=== PATIENT | female | born 1945 | race Caucasian/White ===

== ENCOUNTER → 2016-06-01 | Outpatient (REF) | payer MEDICARE, BC | LOC: M SFHCLACO 08:27 | PROVIDERS: ATTEND Physician Assistant | DX: J44.9 Chronic obstructive pulmonary disease, unspecified (principal); I10 Essential (primary) hypertension; E78.2 Mixed hyperlipidemia; E11.9 Type 2 diabetes mellitus without complications; E61.2 Magnesium deficiency; Z53.9 Procedure and treatment not carried out, unspecified reason ==

== ENCOUNTER → 2016-12-30 | Outpatient (REF) | payer MEDICARE, BC | LOC: M SFHCLACO 08:24 | PROVIDERS: ATTEND Physician Assistant | DX: J44.9 Chronic obstructive pulmonary disease, unspecified (principal); I10 Essential (primary) hypertension; E78.2 Mixed hyperlipidemia; E11.9 Type 2 diabetes mellitus without complications; Z53.9 Procedure and treatment not carried out, unspecified reason ==

== ENCOUNTER 2019-07-06 14:07 | Inpatient (IN) | payer MEDICARE, BC ==
[~2019-07-06] VITALS: Ht 157.5 cm; Wt 100.1 kg
[2019-07-06 15:30] LABS: BASO % 0.4 % (0.0-1.0); EOS % 0.7 % (0.0-3.0); HEMATOCRIT 29.3 % (36.0-47.0); HEMOGLOBIN 8.4 g/dl (12.0-15.5); LYMPH # 0.6 10^3/uL (1.5-5.0); LYMPH % 9.8 % (24.0-44.0); MEAN CORPUSCULAR HEMOGLOBIN 26.1 pg (27.0-33.0); MEAN CORPUSCULAR HGB CONC 28.7 g/dl (32.0-36.5); MONO # 0.6 10^3/uL (0.0-0.8); MONO % 10.5 % (0.0-5.0); NEUTROPHILS # 4.5 10^3/uL (1.5-8.5); NEUTROPHILS % 78.2 % (36.0-66.0); PLATELET COUNT, AUTOMATED 192 10^3/uL (150-450); RED BLOOD COUNT 3.22 10^6/uL (4.00-5.40); WHITE BLOOD COUNT 5.7 10^3/uL (4.0-10.0)
--- NOTE | 2019-07-06 15:53 | REP ---
CHEST, PORTABLE: AP portable view of the chest is performed. There are no prior studies for comparison. There is cardiomegaly. Vasculature appears somewhat engorged. There are accentuated interstitial markings which may represent mild interstitial edema versus fibrosis. There is calcification and tortuosity of the thoracic aorta. Mildly prominent right hilar shadow is likely due to vascular structures. There is an old healed fracture of the left clavicle. Electronically Signed by Sly Valdes MD 07/06/2019 04:32 P
[2019-07-06 16:12] LABS: ALBUMIN 3.1 GM/DL (3.2-5.2); ALT/SGPT 19 U/L (12-78); BILIRUBIN,DIRECT 0.2 MG/DL (0.0-0.2); BILIRUBIN,TOTAL 0.6 MG/DL (0.2-1.0); BLOOD UREA NITROGEN 13 MG/DL (7-18); CALCIUM LEVEL 8.8 MG/DL (8.8-10.2); CARBON DIOXIDE LEVEL 32 MEQ/L (21-32); CHLORIDE LEVEL 106 MEQ/L (98-107); CREATININE FOR GFR 0.74 MG/DL (0.55-1.30); GLOMERULAR FILTRATION RATE > 60.0 (>39); GLUCOSE, FASTING 126 MG/DL (70-100); NT-PRO BNP 852 PG/ML (<450); SODIUM LEVEL 141 MEQ/L (136-145); TOTAL PROTEIN 7.6 GM/DL (6.4-8.2)
--- NOTE | 2019-07-06 16:37 | REP ---
Bilateral lower extremity Duplex Doppler venous ultrasound: Real time compression and duplex Doppler interrogation of the bilateral lower extremity deep venous system is performed. Bilaterally, the common femoral, superficial femoral and popliteal veins are fully compressible with transducer pressure and demonstrate normal spontaneous and phasic flow, without evidence of deep venous thrombosis. Impression: No evidence of deep venous thrombosis of the bilateral lower extremity femoral popliteal venous system. Electronically Signed by Sly Valdes MD 07/06/2019 04:29 P
[2019-07-06] MEDS ORDERED: FUROSEMIDE 100 MG/10 ML VIAL (J1940) IV ONE (17:00)
[2019-07-06] MEDS ORDERED: FURO40TA2 PO (17:11)
[2019-07-06] MEDS ORDERED: VENTAER INH (17:11)
[2019-07-06] MEDS ORDERED: IPRA0.00 NEB (17:11)
[2019-07-06] MEDS ORDERED: METO100T5 PO (17:11)
[2019-07-06] MEDS ORDERED: QUIN1TAB3 PO (17:11)
[2019-07-06] MEDS ORDERED: COMBAER6 INH (17:18)
[2019-07-06] MEDS ORDERED: ATOR1TAB19 PO (17:18)
[2019-07-06] MEDS ORDERED: MAGN500T12 PO (17:18)
[2019-07-06] MEDS ORDERED: ASPI81TA85 PO (17:18)
[2019-07-06] MEDS ORDERED: OMEP-221 PO (17:18)
[2019-07-06] MEDS ORDERED: METF500T13 PO (17:18)
[2019-07-06] MEDS ORDERED: FUROSEMIDE 40 MG/4 ML VIAL (J1940) IV SCH (18:00)
[2019-07-06] MEDS ORDERED: GLUCOSE 4 GM CHEW TABLET PO PRN (18:00)
[2019-07-06] MEDS ORDERED: GLUCAGON FOR INJ 1 MG VIAL (J1610) SC PRN (18:00)
[2019-07-06] MEDS ORDERED: DEXTROSE 50% 50 ML SYRINGE IV PRN (18:00)
[2019-07-06 19:15] LABS: TROPONIN I < 0.02 NG/ML (< 0.10)
[2019-07-06] MEDS: METOPROLOL TARTRATE 100 MG TAB PO SCH (19:55)
[2019-07-06 20:30] VITALS: BP 153/57
[2019-07-06] MEDS: HumaLOG INSULIN (NovoLOG) PER UNIT SC SCH (21:00)
[2019-07-06] MEDS: FUROSEMIDE 40 MG/4 ML VIAL (J1940) IV SCH (21:29)
[2019-07-06] MEDS: QUINAPRIL 20 MG TAB PO SCH (21:30)
--- NOTE | 2019-07-06 22:37 | HPE ---
DATE OF ADMISSION: 07/06/2019 TIME: 6:08 p.m. PRIMARY CARE PROVIDER: ELENA Castle CHIEF COMPLAINT: The patient was brought in a 9.41 by police. HISTORY OF PRESENT ILLNESS: Mrs. Franklin is a 74-year-old woman who was never and has no children. She resides at the [address] [place] [address] and recently she had learned that the place where she was living in is shutting down for repairs and that she would have to find another place to live. She became concerned about this and had started contacting nursing homes in the area and had been turned down and so she became upset while talking to the assisted staff and said, "If I cannot get into a assisted, I might as well just ." Because of this, the police were called to her residence and she was brought in a 9.41; however, she is not suicidal whatsoever. In the emergency department, she was found to be hypertensive with a blood pressure of 211/99. Chest x-ray indicated that she had some mild pulmonary edema with cephalization consistent with congestive heart failure (CHF). It is unclear whether the patient is compliant with her medications. She was treated with intravenous Lasix and admitted to the hospitalist service. She did report that she has had increasing lower extremity swelling. ALLERGIES: No known drug allergies. HOME MEDICATIONS: - albuterol - aspirin - atorvastatin - furosemide 40 mg three times a day - DuoNeb - magnesium oxide - metformin - metoprolol 100 mg twice a day - omeprazole 40 mg daily - quinapril 20 mg twice a day PAST MEDICAL HISTORY: Notable for: 1. Dwn-vqvhxxr-edgoxrzrm diabetes mellitus type 2. 2. Chronic respiratory failure secondary to chronic obstructive pulmonary disease (COPD). She has no extensive tobacco use, but suspects that her COPD developed due to occupational exposure to fiberglass. 3. She has a history of hypertension. 4. Chronic atrial fibrillation. She is no longer on anticoagulation due to a history of gastrointestinal bleed. 5. Chronic respiratory failure and is on 2 to 3 liters of oxygen continuously. 6. History of recently diagnosed colon cancer, status post colectomy. 7. History of chronic diastolic congestive heart failure (CHF). 8. History of blood transfusion during her colectomy. 9. History of gastrointestinal bleed in the past. SURGICAL HISTORY: 1. Colectomy. 2. Exploratory laparotomy, which found that she had a ruptured appendix as a teenager. SOCIAL HISTORY: The patient lives at [address] [place] [address]. She was never . No children. Her surrogate decision maker would be her nephew, Lisandro Franklin. She lists herself as a DO NOT RESUSCITATE. She smoked for a few years but does not do so any longer. FAMILY HISTORY: Notable for dementia and alcoholism. REVIEW OF SYSTEMS: Positive for increasing shortness of breath, decreased functional ability, increased lower extremity swelling. She denies having any chest discomfort. No orthopnea. She denies having any fevers, chills. She reports being compliant with her medications. Remainder of 12-system review is otherwise negative. PHYSICAL EXAMINATION: The patient's pulse is 118 and irregularly irregular with atrial fibrillation seen on telemetry. Respiratory rate 20. Blood pressure 211/99. Oxygen saturation is 95% on 2 liters of nasal cannula. GENERAL: The patient is alert, oriented times three. She has some mild tachypnea during our conversation. She is an elderly female who is very pleasant and appears to be in no significant respiratory distress. HEENT: Head is atraumatic. Pupils are equal, round and reactive to light and accommodation. Extraocular muscles are full. She has her eyeglasses in place. Oropharynx is clear without exudate, erythema or thrush. Neck is supple with no visible jugular venous distention (JVD). LUNGS: Lung sounds are heard bilaterally with bilateral rales. HEART: S1, S2. Irregularly irregular with a grade 2/6 systolic murmur. ABDOMEN: Soft, nontender, nondistended. No visible ascites. No palpable masses. No midline pulsatile mass suggestive of aneurysm. EXTREMITIES: She has 4+ chronic bilateral lower extremity lymphedema. NEUROLOGIC: Cranial nerves II through XII are grossly intact. No focal neurological deficits. RELEVANT LABORATORIES: White count 7.7, hemoglobin 8.4, hematocrit 29.3, platelet count 192. Sodium 141, potassium 4.1, chloride 106, bicarbonate 32, BUN 13, creatinine 0.74, glucose 126, pro BNP 852, TSH was 4.23, albumin 3.1. Chest x-ray showed cephalization with mild interstitial edema consistent with congestive heart failure (CHF). Bilateral lower extremity venous duplex ultrasound did not show any evidence of deep vein thrombosis (DVT). IMPRESSION: 1. Acute on chronic diastolic congestive heart failure (CHF). THe patient will be admitted to the hospitalist service for a minimum of two midnight hospital stay . She will be placed on Lasix 40 mg intravenous every [address] a female catheter. We will diurese her and keep a close eye on her input and output, as well as daily weight and monitor the trend in her electrolytes daily. An echocardiogram will be requested. 2. Accelerated hypertension. The patient will be resumed on her quinapril and metoprolol and see if we need to make any adjustment to the dosages to control her blood pressure. 3. Hyperlipidemia. She will be maintained on atorvastatin. 4. Diabetes mellitus type 2, noninsulin dependent. We will hold her metformin with her acute congestive heart failure (CHF) exacerbation for now while we diurese her. We will continue her on a carbohydrate diet and place her on sliding scale. 5. Chronic obstructive pulmonary disease (COPD). She will be maintained on oxygen, as well as her nebulizers. Her COPD is stable at this time. 6. History of colon cancer. The patient is status post colectomy. She is due to followup as an outpatient with her oncologist for further workup. The patient will be a DO NOT RESUSCITATE per her wishes. She will be placed on Lovenox and thromboembolic compression stockings (TEDS) for deep vein thrombosis (DVT) prophylaxis given her history of colon cancer, which puts her at a higher risk.
[2019-07-06] MEDS: NYSTATIN 100,000 UNITS/GM TOPICAL PWD 15 GM TOP SCH (23:41)
[2019-07-07 06:00] VITALS: BP 164/71
[2019-07-07 06:13] LABS: HEMATOCRIT 29.1 % (36.0-47.0); HEMOGLOBIN 8.5 g/dl (12.0-15.5); MEAN CORPUSCULAR HEMOGLOBIN 26.5 pg (27.0-33.0); MEAN CORPUSCULAR HGB CONC 29.2 g/dl (32.0-36.5); MEAN CORPUSCULAR VOLUME 90.7 fl (80.0-96.0); PLATELET COUNT, AUTOMATED 170 10^3/uL (150-450); RED BLOOD COUNT 3.21 10^6/uL (4.00-5.40); WHITE BLOOD COUNT 5.2 10^3/uL (4.0-10.0)
[2019-07-07 06:34] LABS: BLOOD UREA NITROGEN 12 MG/DL (7-18); CALCIUM LEVEL 9.2 MG/DL (8.8-10.2); CARBON DIOXIDE LEVEL 35 MEQ/L (21-32); CHLORIDE LEVEL 103 MEQ/L (98-107); GLOMERULAR FILTRATION RATE > 60.0 (>39); GLUCOSE, FASTING 97 MG/DL (70-100); MAGNESIUM LEVEL 1.7 MG/DL (1.8-2.4); POTASSIUM SERUM 3.7 MEQ/L (3.5-5.1); SODIUM LEVEL 141 MEQ/L (136-145)
--- NOTE | 2019-07-07 07:20 | ECGEPIP ---
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
[2019-07-07] MEDS: HumaLOG INSULIN (NovoLOG) PER UNIT SC SCH ×4 (07:30→20:18)
[2019-07-07] MEDS: IPRATROPIUM 0.5MG/ALBUTEROL 2.5MG INH SOL UD 3ML (DUONEB)(J7620) NEB PRN (08:41)
[2019-07-07] MEDS: QUINAPRIL 20 MG TAB PO SCH ×2 (09:38→21:02)
[2019-07-07] MEDS: MAGNESIUM OXIDE 400 MG TAB (MAG-OX) PO SCH ×2 (09:46→21:02)
[2019-07-07] MEDS: ATORVASTATIN 10 MG TAB PO SCH (09:46)
[2019-07-07] MEDS: ASPIRIN 81 MG ENTERIC TAB PO SCH (09:46)
[2019-07-07] MEDS: METOPROLOL TARTRATE 100 MG TAB PO SCH ×2 (09:47→21:02)
[2019-07-07] MEDS: ENOXAPARIN 40 MG/0.4 ML SYRINGE (J1650) SC SCH (09:48)
[2019-07-07] MEDS: FUROSEMIDE 40 MG/4 ML VIAL (J1940) IV SCH ×2 (09:49→21:03)
[2019-07-07] MEDS: NYSTATIN 100,000 UNITS/GM TOPICAL PWD 15 GM TOP SCH ×2 (09:50→21:03)
[2019-07-07 10:00] VITALS: BP 138/68
[2019-07-07 14:00] VITALS: BP 145/70
--- NOTE | 2019-07-07 14:01 | ECHO ---
DATE OF PROCEDURE: 07/07/2019 REFERRING PHYSICIAN: Dr. Rice INDICATION: Dyspnea. Height 157 cm, weight 104 kg. DIMENSIONS: IVS: 1.2 LV: 4.3 LVPW: 1.2 LA: 4.6 Aorta: 2.6 RV: 3.0 IVC: 2.5 FINDINGS: The study is of fair technical quality. The patient is in atrial fibrillation with controlled rate. Left ventricle is normal size and has normal systolic function. Estimated left ventricular ejection fraction is approximately 65%. Mild left ventricular hypertrophy (LVH) is noted. Right ventricle does not appear grossly dilated and is normally contractile. There is severe biatrial enlargement, atrial septum is deviated to the right. Aortic valve is heavily sclerotic, but mobility of cusps is preserved and the valve is tricuspid. There are also mild degenerative abnormalities of mitral valve with mitral annular calcifications. Tricuspid and pulmonic valves appear normal. No pericardial effusion is present. Inferior vena cava is dilated, and there is no appreciable collapse with inspiration indicative of very high central venous pressure. Aortic root is normal. Aortic arch was not well seen. Abdominal aorta appears normal. Doppler interrogation reveals no significant aortic stenosis or insufficiency. There is approximately mild to moderate or moderate mitral insufficiency and mild tricuspid insufficiency. Calculated pulmonary artery pressure is in minimum in high 40s corresponding to moderate pulmonary hypertension. Evaluation of diastolic function is inconclusive due to presence of atrial fibrillation. CONCLUSIONS: 1. Study is of fair technical quality, the patient is in atrial fibrillation with controlled rate. 2. Mild LVH with preserved LV systolic function. 3. Moderate mitral insufficiency. 4. Very high central venous pressure and at least moderate pulmonary hypertension. 5. Biatrial enlargement. COMMENT: Subacute bacterial endocarditis (SBE) prophylaxis is not recommended. [facility]
--- NOTE | 2019-07-07 16:33 | IPNPDOC ---
Subjective Date Seen The patient was seen on 07/07/19. Subjective Chief Complaint/HPI Sophia is in good spirits, reporting feeling less SOB. C/o left knee pain. Objective Physical Examination General Exam: Positive: Alert, Cooperative Eye Exam: Positive: PERRLA, EOMI ENT Exam: Positive: Mucous membr. moist/pink Neck Exam: Positive: Supple; Negative: JVD Chest Exam: Positive: Clear to auscultation Abdomen Exam: Positive: Normal bowel sounds Extremity Exam: Positive: Edema, Other (Left kneee with redness or effusion. Cool to touch.); Negative: Cyanosis Psych Exam: Positive: Mental status NL Assessment /Plan Assessment # Acute on chronic diastolic CHF # Pulmonary HTN # Chronic Respiratory failure # Chronic COPD # Chronic atrial fib (not on anticoagulation due to hx of GI bleeding) # NIDDM2 # colon cancer s/p colectomy # Hypothyroidism # Social: Homeless Plan: - echo w/o significant changes - continue IV diuresis x 24 hours with transition to oral diuretic in am - PT/OT for placement - check FT4 Plan/VTE VTE Prophylaxis Ordered?: Yes VTE Exclusion Mechanical Proph: N/A:VTE Prophy Ordered VTE Exclusion Pharmacological: N/A:VTE Prophy Ordered VS, I&O, 24H, Fishbone Vital Signs/I&O Vital Signs Date Time Temp Pulse Resp B/P (MAP) Pulse Ox O2 Delivery O2 Flow Rate FiO2 07/07/19 14:00 97.3 85 18 145/70 (95) 96 07/07/19 06:00 Room Air 07/06/19 19:45 3.0 I&O- Last 24 Hours up to 6 AM 07/07/19 06:00 Intake Total 0 ml Output Total 1400 ml Balance -1400 ml Laboratory Data 24H LABS Laboratory Tests 2 07/06/19 20:35: Bedside Glucose (Misc Panel) 132H 07/06/19 20:43: Troponin I < 0.02 07/06/19 23:55: Troponin I < 0.02 07/07/19 03:05: Troponin I < 0.02 07/07/19 05:49: Nucleated Red Blood Cells % (auto) 0.0, Anion Gap 3L, Glomerular Filtration Rate > 60.0, Calcium Level 9.2, Magnesium Level 1.7L 07/07/19 12:16: Bedside Glucose (Misc Panel) 138H CBC/BMP Laboratory Tests 07/07/19 05:49 MICYK PORTILLO MD Jul 07, 2019 16:33
[2019-07-07 18:00] VITALS: BP 135/75
[2019-07-07 22:00] VITALS: BP 140/62
[2019-07-08] VITALS (7 sets, daily range): BP systolic 138–162; BP diastolic 63–75
[2019-07-08 06:53] LABS: FREE T4 0.87 NG/DL (0.76-1.46)
[2019-07-08] MEDS: HumaLOG INSULIN (NovoLOG) PER UNIT SC SCH ×4 (07:30→20:34)
[2019-07-08 08:19] LABS: BLOOD UREA NITROGEN 18 MG/DL (7-18); CALCIUM LEVEL 8.5 MG/DL (8.8-10.2); CARBON DIOXIDE LEVEL 32 MEQ/L (21-32); CHLORIDE LEVEL 104 MEQ/L (98-107); CREATININE FOR GFR 0.82 MG/DL (0.55-1.30); GLOMERULAR FILTRATION RATE > 60.0 (>39); GLUCOSE, FASTING 93 MG/DL (70-100); SODIUM LEVEL 143 MEQ/L (136-145)
[2019-07-08] MEDS: FUROSEMIDE 40 MG/4 ML VIAL (J1940) IV SCH (09:00)
[2019-07-08] MEDS: QUINAPRIL 20 MG TAB PO SCH ×2 (09:35→20:36)
[2019-07-08] MEDS: ASPIRIN 81 MG ENTERIC TAB PO SCH (09:36)
[2019-07-08] MEDS: ATORVASTATIN 10 MG TAB PO SCH (09:36)
[2019-07-08] MEDS: MAGNESIUM OXIDE 400 MG TAB (MAG-OX) PO SCH ×2 (09:36→20:35)
[2019-07-08] MEDS: ENOXAPARIN 40 MG/0.4 ML SYRINGE (J1650) SC SCH (09:37)
[2019-07-08] MEDS: METOPROLOL TARTRATE 100 MG TAB PO SCH ×2 (09:37→20:36)
[2019-07-08] MEDS: NYSTATIN 100,000 UNITS/GM TOPICAL PWD 15 GM TOP SCH ×2 (09:37→20:37)
[2019-07-08] MEDS: FUROSEMIDE 40 MG TAB PO SCH ×3 (10:31→20:35)
--- NOTE | 2019-07-08 11:27 | IPNPDOC ---
Subjective Date Seen The patient was seen on 07/08/19. Subjective Chief Complaint/HPI Sophia is fine this morning, her LE edema is improved significantly Objective Physical Examination General Exam: Positive: Alert, Cooperative Eye Exam: Positive: PERRLA, EOMI ENT Exam: Positive: Mucous membr. moist/pink Neck Exam: Positive: Supple; Negative: JVD Chest Exam: Positive: Clear to auscultation Abdomen Exam: Positive: Normal bowel sounds Extremity Exam: Positive: Edema (improved), Other (Left kneee without redness or effusion. Cool to touch.); Negative: Cyanosis Psych Exam: Positive: Mental status NL Assessment /Plan Assessment # Acute on chronic diastolic CHF -improved # Pulmonary HTN # Chronic Respiratory failure # Chronic COPD # Chronic atrial fib (not on anticoagulation due to hx of GI bleeding) # NIDDM2 # colon cancer s/p colectomy # Subclinical Hypothyroidism # Social: Homeless Plan: - echo w/o significant changes - revert back to home lasix dosing 40 mg TID - BMP in am - PT/OT for placement - Recheck TSH in 4-6 weeks Plan/VTE VTE Prophylaxis Ordered?: Yes VTE Exclusion Mechanical Proph: N/A:VTE Prophy Ordered VTE Exclusion Pharmacological: N/A:VTE Prophy Ordered VS, I&O, 24H, Fishbone Vital Signs/I&O Vital Signs Date Time Temp Pulse Resp B/P (MAP) Pulse Ox O2 Delivery O2 Flow Rate FiO2 07/08/19 09:35 146/75 07/08/19 06:00 98.5 70 17 96 Room Air 07/07/19 21:30 3.0 I&O- Last 24 Hours up to 6 AM 07/08/19 06:00 Intake Total 2585 ml Output Total 2200 ml Balance 385 ml Laboratory Data 24H LABS Laboratory Tests 2 07/07/19 12:16: Bedside Glucose (Misc Panel) 138H 07/07/19 17:03: Bedside Glucose (Misc Panel) 101 07/07/19 20:09: Bedside Glucose (Misc Panel) 148H 07/08/19 05:51: Bedside Glucose (Misc Panel) 89 07/08/19 05:58: Anion Gap 7L, Glomerular Filtration Rate > 60.0, Calcium Level 8.5L, Free Thyroxine 0.87 CBC/BMP Laboratory Tests 07/08/19 05:58 MICKY PORTILLO MD Jul 08, 2019 11:27
[2019-07-08] MEDS: VANICREAM MOISTURIZING SKIN CREAM 113GM TUBE TOP SCH ×2 (13:00→20:36)
[2019-07-08] MEDS: IPRATROPIUM 0.5MG/ALBUTEROL 2.5MG INH SOL UD 3ML (DUONEB)(J7620) NEB PRN (17:31)
[2019-07-09 06:00] VITALS: BP 138/76
[2019-07-09 06:00] LABS: HEMOGLOBIN 7.8 g/dl (12.0-15.5); MEAN CORPUSCULAR HEMOGLOBIN 26.4 pg (27.0-33.0); MEAN CORPUSCULAR HGB CONC 28.9 g/dl (32.0-36.5); MEAN CORPUSCULAR VOLUME 91.2 fl (80.0-96.0); PLATELET COUNT, AUTOMATED 153 10^3/uL (150-450); RED BLOOD COUNT 2.96 10^6/uL (4.00-5.40); WHITE BLOOD COUNT 5.7 10^3/uL (4.0-10.0)
[2019-07-09 06:32] LABS: BLOOD UREA NITROGEN 21 MG/DL (7-18); CALCIUM LEVEL 8.9 MG/DL (8.8-10.2); CARBON DIOXIDE LEVEL 35 MEQ/L (21-32); CHLORIDE LEVEL 102 MEQ/L (98-107); CREATININE FOR GFR 0.93 MG/DL (0.55-1.30); GLOMERULAR FILTRATION RATE > 60.0 (>39); GLUCOSE, FASTING 124 MG/DL (70-100); MAGNESIUM LEVEL 2.1 MG/DL (1.8-2.4); POTASSIUM SERUM 3.7 MEQ/L (3.5-5.1); SODIUM LEVEL 139 MEQ/L (136-145)
[2019-07-09] MEDS: HumaLOG INSULIN (NovoLOG) PER UNIT SC SCH ×4 (08:19→21:00)
[2019-07-09] MEDS: ENOXAPARIN 40 MG/0.4 ML SYRINGE (J1650) SC SCH (08:20)
[2019-07-09] MEDS: ATORVASTATIN 10 MG TAB PO SCH (08:22)
[2019-07-09] MEDS: MAGNESIUM OXIDE 400 MG TAB (MAG-OX) PO SCH ×2 (08:22→23:10)
[2019-07-09] MEDS: FUROSEMIDE 40 MG TAB PO SCH ×3 (08:23→23:11)
[2019-07-09] MEDS: QUINAPRIL 20 MG TAB PO SCH ×2 (08:23→23:10)
[2019-07-09] MEDS: ASPIRIN 81 MG ENTERIC TAB PO SCH (08:23)
[2019-07-09] MEDS: METOPROLOL TARTRATE 100 MG TAB PO SCH ×2 (08:24→23:10)
[2019-07-09] MEDS: NYSTATIN 100,000 UNITS/GM TOPICAL PWD 15 GM TOP SCH ×2 (08:26→23:09)
[2019-07-09] MEDS: VANICREAM MOISTURIZING SKIN CREAM 113GM TUBE TOP SCH ×2 (08:26→23:09)
[2019-07-09 08:34] LABS: PERCENT SATURATION 6.1 % (13.2-45.0)
[2019-07-09 09:33] LABS: FOLATE 9.6 NG/ML (>5.4)
[2019-07-09 10:00] VITALS: BP 132/71
--- NOTE | 2019-07-09 10:10 | IPNPDOC ---
Subjective Date Seen The patient was seen on 07/09/19. Subjective Chief Complaint/HPI Sophia is well this morning. Leg swelling has diminished. Objective Physical Examination General Exam: Positive: Alert, No Acute Distress Eye Exam: Positive: EOMI; Negative: Sclera icteric ENT Exam: Positive: Mucous membr. moist/pink Neck Exam: Positive: Supple; Negative: JVD Chest Exam: Positive: Clear to auscultation Abdomen Exam: Positive: Normal bowel sounds Extremity Exam: Positive: Edema (overall improved), Other (Left kneee without redness or effusion. Cool to touch.); Negative: Cyanosis Skin Exam: Negative: Rash Psych Exam: Positive: Mental status NL Assessment /Plan Assessment # Acute on chronic diastolic CHF -improved # Pulmonary HTN # Chronic Respiratory failure # Chronic COPD # Chronic atrial fib (not on anticoagulation due to hx of GI bleeding) # NIDDM2 # colon cancer s/p colectomy # Subclinical Hypothyroidism # Social: Homeless Plan: - echo w/o significant changes - tolerating lasix dosing 40 mg TID - PT/OT for placement - Recheck TSH in 4-6 weeks - F/u with cardiology as outpatient for evaluation for watchman's procedure if not candidate for anticoagulation - Medically stable for discharge when SNF bed available Plan/VTE VTE Prophylaxis Ordered?: Yes VTE Exclusion Mechanical Proph: N/A:VTE Prophy Ordered VTE Exclusion Pharmacological: N/A:VTE Prophy Ordered VS, I&O, 24H, Fishbone Vital Signs/I&O Vital Signs Date Time Temp Pulse Resp B/P (MAP) Pulse Ox O2 Delivery O2 Flow Rate FiO2 07/09/19 08:26 3.0 07/09/19 08:24 76 136/68 07/09/19 06:00 97.8 19 96 07/08/19 22:00 Nasal Cannula I&O- Last 24 Hours up to 6 AM 07/09/19 06:00 Intake Total 1530 ml Output Total 300 ml Balance 1230 ml Laboratory Data 24H LABS Laboratory Tests 2 07/08/19 11:42: Bedside Glucose (Misc Panel) 97 07/08/19 17:30: Bedside Glucose (Misc Panel) 195H 07/08/19 20:03: Bedside Glucose (Misc Panel) 125H 07/09/19 05:39: Nucleated Red Blood Cells % (auto) 0.0, Anion Gap 2L, Glomerular Filtration Rate > 60.0, Calcium Level 8.9, Magnesium Level 2.1 07/09/19 07:48: Iron Level 28L, Total Iron Binding Capacity 458H, Transferrin % Saturation 6.1L, Ferritin 14, Vitamin B12 Level 389, Folate 9.6 CBC/BMP Laboratory Tests 07/09/19 05:39 MICKY PORTILLO MD Jul 09, 2019 10:10
[2019-07-09 14:00] VITALS: BP 141/62
[2019-07-09 22:00] VITALS: BP 143/72
[2019-07-10 06:00] VITALS: BP 132/71
[2019-07-10] MEDS: ATORVASTATIN 10 MG TAB PO SCH (08:26)
[2019-07-10] MEDS: HumaLOG INSULIN (NovoLOG) PER UNIT SC SCH ×4 (08:26→20:51)
[2019-07-10] MEDS: ENOXAPARIN 40 MG/0.4 ML SYRINGE (J1650) SC SCH (08:26)
[2019-07-10] MEDS: FUROSEMIDE 40 MG TAB PO SCH ×3 (08:27→20:56)
[2019-07-10] MEDS: MAGNESIUM OXIDE 400 MG TAB (MAG-OX) PO SCH ×2 (08:27→20:56)
[2019-07-10] MEDS: NYSTATIN 100,000 UNITS/GM TOPICAL PWD 15 GM TOP SCH ×2 (08:28→20:56)
[2019-07-10] MEDS: VANICREAM MOISTURIZING SKIN CREAM 113GM TUBE TOP SCH ×2 (08:28→20:57)
[2019-07-10] MEDS: QUINAPRIL 20 MG TAB PO SCH ×2 (08:29→20:57)
[2019-07-10] MEDS: ASPIRIN 81 MG ENTERIC TAB PO SCH (08:29)
[2019-07-10] MEDS: METOPROLOL TARTRATE 100 MG TAB PO SCH ×2 (08:30→20:57)
[2019-07-10 14:00] VITALS: BP 128/68
--- NOTE | 2019-07-10 14:02 | REP ---
CHEST, PORTABLE: AP portable view of the chest is performed and compared to a prior study of 07/06/2019. There is again diffuse accentuation of interstitial markings unchanged. There is cardiomegaly and mild vascular congestion which is stable. Mediastinal silhouette is unchanged. There is calcification and tortuosity of the thoracic aorta. There are degenerative changes of the spine. There is an old healed left clavicle fracture. IMPRESSION: Stable exam with no acute change compared to 07/06/2019. Electronically Signed by Sly Valdes MD 07/10/2019 07:57 P
--- NOTE | 2019-07-10 18:37 | IPN ---
DATE: 07/10/2019 The patient says that she is slightly short of breath today, but unchanged from her baseline. No chest pain, pressure or tightness, palpitations or lightheadedness. Compliant with her Lasix; keeping to a net negative balance. Current weight is 99.8 kg from admission weight of 103.5 kg. PHYSICAL EXAMINATION: Temperature 98.7, pulse 80, respiratory rate 19, blood pressure 127/67, 95% on 3 liters nasal canula. GENERAL: Awake, alert and oriented times three. Answers questions appropriately. Pupils round and reactive. Moist mucous membranes. No thyromegaly or cervical lymphadenopathy. Lungs are clear to auscultation. No wheezing or rales. HEART: S1, S2,irregular. ABDOMEN: Soft, nontender, nondistended. EXTREMITIES: 1+ pitting edema in bilateral lower extremities. LABORATORY DATA: White count 5.7, hemoglobin 7.8, hematocrit 27, platelet count 153. Sodium 139, potassium 3.7, chloride 102, bicarbonate 35, BUN 21 and creatinine 0.93. Glucose is 124, magnesium of 2.1, iron 28, total iron-binding capacity (TIBC) 458, ferritin 14. ASSESSMENT AND PLAN: This is a 74-year-old female, DO NOT RESUSCITATE, DO NOT INTUBATE, history of diastolic dysfunction with preserved left ventricular systolic function, ejection fraction of 65% with mild left ventricular hypertrophy (LVH), active treated for congestive heart failure (CHF) exacerbation, currently euvolemic. IMPRESSION: 1. Acute on chronic diastolic heart failure back to baseline, currently euvolemic. Continue with strict input and output, daily weights, fluid restriction and Lasix three times a day. Monitor the patient's creatinine every week with repeat metabolic panel. 2. Pulmonary hypertension due to chronic obstructive pulmonary disease (COPD) complicating her care. 3. Chronic atrial fibrillation, not on anticoagulation due to history of gastrointestinal (GI) bleed. 4. Colon cancer, status post colectomy, outpatient followup. 5. Subclinical hypothyroidism. Monitor the patient's clinic status. Repeat thyroid simulating hormone (TSH) in six weeks. 6. Chronic respiratory failure. Keep saturations above 88% to 90%. DISPOSITION: Awaiting placement.
[2019-07-10 22:00] VITALS: BP 130/67
[2019-07-11 06:00] VITALS: BP 133/65
[2019-07-11 09:23] LABS: HEMATOCRIT 29.9 % (36.0-47.0); HEMOGLOBIN 8.4 g/dl (12.0-15.5); MEAN CORPUSCULAR HEMOGLOBIN 25.7 pg (27.0-33.0); MEAN CORPUSCULAR HGB CONC 28.1 g/dl (32.0-36.5); MEAN CORPUSCULAR VOLUME 91.4 fl (80.0-96.0); PLATELET COUNT, AUTOMATED 146 10^3/uL (150-450); RED BLOOD COUNT 3.27 10^6/uL (4.00-5.40); WHITE BLOOD COUNT 5.5 10^3/uL (4.0-10.0)
[2019-07-11] MEDS: HumaLOG INSULIN (NovoLOG) PER UNIT SC SCH ×2 (10:13→13:16)
[2019-07-11] MEDS: NYSTATIN 100,000 UNITS/GM TOPICAL PWD 15 GM TOP SCH (10:13)
[2019-07-11] MEDS: ASPIRIN 81 MG ENTERIC TAB PO SCH (10:13)
[2019-07-11] MEDS: ATORVASTATIN 10 MG TAB PO SCH (10:13)
[2019-07-11] MEDS: FUROSEMIDE 40 MG TAB PO SCH (10:14)
[2019-07-11] MEDS: VANICREAM MOISTURIZING SKIN CREAM 113GM TUBE TOP SCH (10:15)
[2019-07-11] MEDS: MAGNESIUM OXIDE 400 MG TAB (MAG-OX) PO SCH (10:15)
[2019-07-11] MEDS: METOPROLOL TARTRATE 100 MG TAB PO SCH (10:15)
[2019-07-11] MEDS: ENOXAPARIN 40 MG/0.4 ML SYRINGE (J1650) SC SCH (10:15)
[2019-07-11 10:16] VITALS: BP 133/65
[2019-07-11] MEDS: QUINAPRIL 20 MG TAB PO SCH (10:16)
--- NOTE | 2019-07-12 15:27 | DSES ---
DATE OF ADMISSION: 07/06/2019 DATE OF DISCHARGE: 07/11/2019 Patient was transferred to alternative level of care (ALC) status on 07/10/2019. PRIMARY DISCHARGE DIAGNOSES: 1. Acute decompensated diastolic heart failure. 2. Pulmonary hypertension due to chronic obstructive pulmonary disease. 3. Chronic obstructive pulmonary disease. 4. Chronic atrial fibrillation. 5. Colon cancer status post colectomy. 6. Subclinical hypothyroidism. 7. Chronic hypoxic respiratory failure, on supplemental oxygen. DISCHARGE MEDICATIONS: - albuterol two puffs every 4 as needed - aspirin 81 daily - atorvastatin 10 daily - Lasix 40 three times a day - ipratropium albuterol 3 mL twice a day as needed - Combivent one puff inhaled four times a day - magnesium oximetry 500 daily - metformin 500 twice a day - metoprolol 100 twice a day - Prilosec 40 daily - quinapril 20 twice a day DISCHARGE INSTRUCTIONS: A 2-liter fluid restriction. Strict intake and output and daily weights. Call cardiology if greater than 2-pound weight gain and immediate followup with primary care physician within 5 days of hospital discharge. HOSPITAL COURSE: This is a 74-year-old female who presented to the emergency room due to being homeless. She was brought out and was found to have congestive heart failure (CHF) with cephalization on chest x-ray, jugular venous distention (JVD) on exam, and hypertensive emergency with blood pressure 211/99. Patient was treated for congestive heart failure (CHF), diastolic dysfunction with Lasix intravenously to net-negative balance. She was placed on a fluid restriction. Strict intake and output. She had an admission weight of 103.5 kg and discharge weight of 101 kg. Remained in net-negative balance 2 days after admission and 2 days prior to discharge. Patient's creatinine remained stable at 0.93. Cardiac markers were unimpressive with remained with a troponin of less than 0.02. She was continued on metoprolol and quinapril with systolic pressure improving t 130-137 prior to her hospital discharge. Since she was homeless, patient was changed to ALC status, awaiting placement. Otherwise she has had no new complaints. Venous Dopplers of her lower extremities were negative for deep vein thrombosis (DVT). Repeat chest x-ray on 07/10/2019 shows no acute change as compared to August 03. PHYSICAL EXAMINATION ON DISCHARGE: Temperature 97.7, pulse 73, respiratory rate 20, blood pressure 133/65, 95% on 3 liters nasal cannula. GENERAL: Patient is awake, alert, oriented to person, place, and time. She is edentulous. No jugular venous distention (JVD). No thyromegaly. No cervical lymphadenopathy. Dry mucous membranes. LUNGS: Clear to auscultation. No wheezing or rales. HEART: S1, S2, sinus rhythm. Nondisplaced point of maximal impulse, apical systolic murmur without any radiation. ABDOMEN: Obese, Soft, nontender, nondistended. EXTREMITIES: Chronic 1+ pitting edema. LABORATORY DATA: White count 5.5, hemoglobin 8.4, hematocrit 29.9, platelet count 146. Sodium 139, potassium 3.7, chloride 102, bicarbonate 35, BUN 21, creatinine 0.93, glucose 124. IMAGING STUDIES: Vascular ultrasound: Negative deep vein thrombosis (DVT), bilateral lower extremities. Chest x-ray on admission: CHF, cephalization of pulmonary vasculature. Interstitial edema. TIME SPENT ON DISCHARGE: [address] [facility]
== END 2019-07-11 13:28 | DRG 292 ==
LOC: M ED 14:07 → M ED INP 17:49 → ENRESERVTM 19:12 → ENRESERVDT 19:12 → M MSPAV 20:20
PROVIDERS: ADMIT Internal Medicine; ATTEND General Practice
DX: I11.0 Hypertensive heart disease with heart failure (principal); J96.11 Chronic respiratory failure with hypoxia; I48.20 Chronic atrial fibrillation, unspecified; I50.33 Acute on chronic diastolic (congestive) heart failure; J44.9 Chronic obstructive pulmonary disease, unspecified; I27.20 Pulmonary hypertension, unspecified; Z85.038 Personal history of other malignant neoplasm of large intestine; E02 Subclinical iodine-deficiency hypothyroidism; Z79.82 Long term (current) use of aspirin; Z79.899 Other long term (current) drug therapy; I16.0 Hypertensive urgency; Z59.0 Homelessness; E11.9 Type 2 diabetes mellitus without complications; Z66 Do not resuscitate; Z87.891 Personal history of nicotine dependence

== ENCOUNTER → 2019-07-16 | Outpatient (REF) ==
[~2019-07-16] MED LIST: ASPI81TA85 PO; ATOR1TAB19 PO; COMBAER6 INH; FURO40TA2 PO; IPRA0.00 NEB; MAGN500T12 PO; METF500T13 PO; METO100T5 PO; OMEP-221 PO; QUIN1TAB3 PO; VENTAER INH
[2019-07-16 10:00] LABS: HEMATOCRIT 31.7 % (36.0-47.0); HEMOGLOBIN 9.1 g/dl (12.0-15.5); MEAN CORPUSCULAR HEMOGLOBIN 25.8 pg (27.0-33.0); MEAN CORPUSCULAR HGB CONC 28.7 g/dl (32.0-36.5); MEAN CORPUSCULAR VOLUME 89.8 fl (80.0-96.0); PLATELET COUNT, AUTOMATED 160 10^3/uL (150-450); RED BLOOD COUNT 3.53 10^6/uL (4.00-5.40); WHITE BLOOD COUNT 6.3 10^3/uL (4.0-10.0)
[2019-07-16 10:24] LABS: CALCIUM LEVEL 9.5 MG/DL (8.8-10.2); CREATININE FOR GFR 0.97 MG/DL (0.55-1.30); GLOMERULAR FILTRATION RATE 59.4 (>39); MAGNESIUM LEVEL 2.4 MG/DL (1.8-2.4); POTASSIUM SERUM 4.3 MEQ/L (3.5-5.1)
== END ==
LOC: SKLAB2 07:00
PROVIDERS: ATTEND Internal Medicine
DX: D64.9 Anemia, unspecified (principal); I50.9 Heart failure, unspecified; E83.42 Hypomagnesemia

== ENCOUNTER → 2019-07-23 | Outpatient (REF) ==
[2019-07-23 09:31] LABS: CALCIUM LEVEL 9.1 MG/DL (8.8-10.2); CREATININE FOR GFR 1.01 MG/DL (0.55-1.30); GLOMERULAR FILTRATION RATE 56.7 (>39); POTASSIUM SERUM 4.2 MEQ/L (3.5-5.1)
== END ==
LOC: SKLAB2 07:30
PROVIDERS: ATTEND Internal Medicine
DX: I50.9 Heart failure, unspecified (principal)

== ENCOUNTER → 2019-07-31 | Outpatient (REF) ==
[2019-07-31 07:41] LABS: CALCIUM LEVEL 10.1 MG/DL (8.8-10.2); GLOMERULAR FILTRATION RATE 57.4 (>39); POTASSIUM SERUM 4.3 MEQ/L (3.5-5.1)
== END ==
LOC: SKLAB2 07:00
PROVIDERS: ATTEND Internal Medicine
DX: I50.9 Heart failure, unspecified (principal)

== ENCOUNTER → 2019-08-07 | Outpatient (REF) ==
[2019-08-07 08:05] LABS: CALCIUM LEVEL 9.4 MG/DL (8.8-10.2); CREATININE FOR GFR 1.16 MG/DL (0.55-1.30); GLOMERULAR FILTRATION RATE 48.4 (>39); POTASSIUM SERUM 4.2 MEQ/L (3.5-5.1)
== END ==
LOC: SKLAB2 07:00
PROVIDERS: ATTEND Internal Medicine
DX: I50.9 Heart failure, unspecified (principal)

== ENCOUNTER → 2019-08-13 | Outpatient (REF) | payer MEDICARE, BC ==
[2019-08-13 07:07] LABS: CALCIUM LEVEL 9.1 MG/DL (8.8-10.2); CREATININE FOR GFR 1.06 MG/DL (0.55-1.30); GLOMERULAR FILTRATION RATE 53.7 (>39); POTASSIUM SERUM 3.9 MEQ/L (3.5-5.1)
== END ==
LOC: SKLAB2 07:00
PROVIDERS: ATTEND Internal Medicine
DX: R60.9 Edema, unspecified (principal)

== ENCOUNTER → 2019-08-21 | Outpatient (REF) ==
[2019-08-21 07:59] LABS: HEMATOCRIT 30.1 % (36.0-47.0); HEMOGLOBIN 8.9 g/dl (12.0-15.5); MEAN CORPUSCULAR HEMOGLOBIN 26.7 pg (27.0-33.0); MEAN CORPUSCULAR HGB CONC 29.6 g/dl (32.0-36.5); MEAN CORPUSCULAR VOLUME 90.4 fl (80.0-96.0); PLATELET COUNT, AUTOMATED 113 10^3/uL (150-450); RED BLOOD COUNT 3.33 10^6/uL (4.00-5.40); WHITE BLOOD COUNT 3.9 10^3/uL (4.0-10.0)
== END ==
LOC: SKLAB2 07:00
PROVIDERS: ATTEND Internal Medicine
DX: D64.9 Anemia, unspecified (principal)

== ENCOUNTER → 2019-09-18 | Outpatient (REF) | payer MEDICARE, BC ==
[2019-09-18 08:48] LABS: HEMATOCRIT 29.6 % (36.0-47.0); HEMOGLOBIN 8.9 g/dl (12.0-15.5); MEAN CORPUSCULAR HEMOGLOBIN 27.1 pg (27.0-33.0); MEAN CORPUSCULAR HGB CONC 30.1 g/dl (32.0-36.5); MEAN CORPUSCULAR VOLUME 90.2 fl (80.0-96.0); PLATELET COUNT, AUTOMATED 119 10^3/uL (150-450); RED BLOOD COUNT 3.28 10^6/uL (4.00-5.40); WHITE BLOOD COUNT 4.5 10^3/uL (4.0-10.0)
== END ==
LOC: SKLAB2 07:30
PROVIDERS: ATTEND Internal Medicine
DX: D64.9 Anemia, unspecified (principal)

== ENCOUNTER → 2019-09-18 | Outpatient (REF) | LOC: SKLAB2 07:30 | PROVIDERS: ATTEND Internal Medicine | DX: Z03.818 Encounter for observation for suspected exposure to other biological agents ruled out (principal) ==

== ENCOUNTER → 2019-10-16 | Outpatient (REF) | payer MEDICARE, BC ==
[2019-10-16 09:16] LABS: HEMATOCRIT 29.9 % (36.0-47.0); HEMOGLOBIN 9.4 g/dl (12.0-15.5); MEAN CORPUSCULAR HEMOGLOBIN 29.1 pg (27.0-33.0); MEAN CORPUSCULAR HGB CONC 31.4 g/dl (32.0-36.5); MEAN CORPUSCULAR VOLUME 92.6 fl (80.0-96.0); PLATELET COUNT, AUTOMATED 124 10^3/uL (150-450); RED BLOOD COUNT 3.23 10^6/uL (4.00-5.40); WHITE BLOOD COUNT 4.7 10^3/uL (4.0-10.0)
[2019-10-16 09:21] LABS: CALCIUM LEVEL 9.3 MG/DL (8.8-10.2); CREATININE FOR GFR 1.35 MG/DL (0.55-1.30); GLOMERULAR FILTRATION RATE 40.6 (>39); MAGNESIUM LEVEL 2.5 MG/DL (1.8-2.4); POTASSIUM SERUM 4.4 MEQ/L (3.5-5.1)
== END ==
LOC: SKLAB2 07:30
PROVIDERS: ATTEND Internal Medicine
DX: E83.42 Hypomagnesemia (principal); I50.9 Heart failure, unspecified; D64.9 Anemia, unspecified

== ENCOUNTER → 2019-10-18 | Outpatient (REF) | payer MEDICARE, BC ==
[2019-10-18 08:29] LABS: CALCIUM LEVEL 9.1 MG/DL (8.8-10.2); CREATININE FOR GFR 1.35 MG/DL (0.55-1.30); GLOMERULAR FILTRATION RATE 40.6 (>39); PHOSPHORUS LEVEL 4.4 MG/DL (2.5-4.9); POTASSIUM SERUM 4.3 MEQ/L (3.5-5.1)
== END ==
LOC: SKLAB2 07:00
PROVIDERS: ATTEND Internal Medicine
DX: I50.9 Heart failure, unspecified (principal); N18.9 Chronic kidney disease, unspecified

== ENCOUNTER → 2019-10-19 | Outpatient (REF) | payer MEDICARE, BC ==
[2019-10-19 09:36] LABS: CREATININE FOR GFR 1.45 MG/DL (0.55-1.30)
[2019-10-19 09:37] LABS: CALCIUM LEVEL 9.4 MG/DL (8.8-10.2); GLOMERULAR FILTRATION RATE 37.4 (>39); POTASSIUM SERUM 4.2 MEQ/L (3.5-5.1)
== END ==
LOC: SKLAB2 08:37
PROVIDERS: ATTEND Internal Medicine
DX: R60.9 Edema, unspecified (principal)

== ENCOUNTER → 2019-10-22 | Outpatient (REF) | payer MEDICARE, BC ==
[2019-10-22 09:34] LABS: CALCIUM LEVEL 8.8 MG/DL (8.8-10.2); CREATININE FOR GFR 1.38 MG/DL (0.55-1.30); GLOMERULAR FILTRATION RATE 39.6 (>39); POTASSIUM SERUM 4.1 MEQ/L (3.5-5.1)
== END ==
LOC: SKLAB2 07:00
PROVIDERS: ATTEND Internal Medicine
DX: R60.9 Edema, unspecified (principal)

== ENCOUNTER → 2019-10-25 | Outpatient (REF) | payer MEDICARE, BC ==
[2019-10-25 10:30] LABS: CALCIUM LEVEL 9.4 MG/DL (8.8-10.2); CREATININE FOR GFR 1.2 MG/DL (0.55-1.30); GLOMERULAR FILTRATION RATE 46.5 (>39); PHOSPHORUS LEVEL 3.4 MG/DL (2.5-4.9); POTASSIUM SERUM 3.7 MEQ/L (3.5-5.1)
== END ==
LOC: SKLAB2 07:00
PROVIDERS: ATTEND Internal Medicine
DX: I50.9 Heart failure, unspecified (principal); N18.9 Chronic kidney disease, unspecified

== ENCOUNTER → 2019-10-30 | Outpatient (REF) | payer MEDICARE, BC ==
[2019-10-30 07:50] LABS: ALBUMIN 3.1 GM/DL (3.2-5.2); CALCIUM LEVEL 9.4 MG/DL (8.8-10.2); CREATININE FOR GFR 1.28 MG/DL (0.55-1.30); GLOMERULAR FILTRATION RATE 43.2 (>39); PHOSPHORUS LEVEL 3.8 MG/DL (2.5-4.9); POTASSIUM SERUM 3.9 MEQ/L (3.5-5.1)
== END ==
LOC: SKLAB2 10:28
PROVIDERS: ATTEND Internal Medicine
DX: N18.9 Chronic kidney disease, unspecified (principal)

== ENCOUNTER → 2019-10-31 | Outpatient (REF) | payer MEDICARE, BC ==
[~2019-10-31] MED LIST changes: -ASPI81TA85 PO; +ASPI81TA86 PO
[2019-10-31 11:27] LABS: APPEARANCE, URINE HAZY (CLEAR); BACTERIA, URINE AUTO 1+ (NEGATIVE); BILIRUBIN, URINE AUTO NEGATIVE (NEGATIVE); BLOOD, URINE BLOOD 2+ (NEGATIVE); COLOR, URINE YELLOW (YELLOW); GLUCOSE, URINE (UA) AUTO NEGATIVE (NEGATIVE); KETONE, URINE AUTO NEGATIVE (NEGATIVE); LEUKOCYTE ESTERASE, URINE AUTO 3+ (NEGATIVE); NITRITE, URINE AUTO NEGATIVE (NEGATIVE); PROTEIN, URINE AUTO NEGATIVE (NEGATIVE); RBC, URINE AUTO 10 /HPF (0-3); SPECIFIC GRAVITY URINE AUTO 1.013 (1.002-1.035); SQUAMOUS EPITHELIAL CELL UR AU 1 /HPF (0-6); UROBILINOGEN, URINE AUTO 0.2 mg/dL (0.0-2.0); WBC, URINE AUTO TNTC /HPF (0-3)
== END ==
LOC: SKLAB2 09:58
PROVIDERS: ATTEND Internal Medicine
DX: M54.9 Dorsalgia, unspecified (principal)

== ENCOUNTER → 2019-11-01 | Outpatient (REF) | payer MEDICARE, BC ==
[~2019-11-01] MED LIST changes: +ASPI81TA85 PO; -ASPI81TA86 PO
[2019-11-01 09:10] LABS: ALBUMIN 3.1 GM/DL (3.2-5.2); CALCIUM LEVEL 9.5 MG/DL (8.8-10.2); CREATININE FOR GFR 1.2 MG/DL (0.55-1.30); GLOMERULAR FILTRATION RATE 46.5 (>39); PHOSPHORUS LEVEL 3.5 MG/DL (2.5-4.9); POTASSIUM SERUM 3.5 MEQ/L (3.5-5.1)
== END ==
LOC: SKLAB2 07:00
PROVIDERS: ATTEND Internal Medicine
DX: I50.9 Heart failure, unspecified (principal); N18.9 Chronic kidney disease, unspecified

== ENCOUNTER → 2019-11-08 | Outpatient (REF) | payer MEDICARE, BC ==
[2019-11-08 08:50] LABS: ALBUMIN 3.2 GM/DL (3.2-5.2); CALCIUM LEVEL 9.7 MG/DL (8.8-10.2); CREATININE FOR GFR 1.2 MG/DL (0.55-1.30); GLOMERULAR FILTRATION RATE 46.5 (>39); PHOSPHORUS LEVEL 3.6 MG/DL (2.5-4.9); POTASSIUM SERUM 3.9 MEQ/L (3.5-5.1)
== END ==
LOC: SKLAB2 08:29
PROVIDERS: ATTEND Internal Medicine
DX: I50.9 Heart failure, unspecified (principal); N18.9 Chronic kidney disease, unspecified

== ENCOUNTER → 2019-11-29 | Outpatient (REF) | payer MEDICARE, BC ==
[~2019-11-29] MED LIST changes: -ASPI81TA85 PO; +ASPI81TA86 PO
[2019-11-29 08:52] LABS: BASO % 0.5 % (0.0-1.0); EOS # 0.1 10^3/uL (0.0-0.5); EOS % 2.2 % (0.0-3.0); HEMATOCRIT 32.8 % (36.0-47.0); HEMOGLOBIN 10.1 g/dl (12.0-15.5); LYMPH # 1.2 10^3/uL (1.5-5.0); LYMPH % 19.7 % (24.0-44.0); MEAN CORPUSCULAR HEMOGLOBIN 30.3 pg (27.0-33.0); MEAN CORPUSCULAR HGB CONC 30.8 g/dl (32.0-36.5); MEAN CORPUSCULAR VOLUME 98.5 fl (80.0-96.0); MONO # 0.6 10^3/uL (0.0-0.8); MONO % 9.4 % (0.0-5.0); NEUTROPHILS % 67.7 % (36.0-66.0); PLATELET COUNT, AUTOMATED 140 10^3/uL (150-450); RED BLOOD COUNT 3.33 10^6/uL (4.00-5.40); WHITE BLOOD COUNT 5.9 10^3/uL (4.0-10.0)
[2019-11-29 09:19] LABS: ALBUMIN 2.9 GM/DL (3.2-5.2); CALCIUM LEVEL 9.3 MG/DL (8.8-10.2); CREATININE FOR GFR 0.99 MG/DL (0.55-1.30); GLOMERULAR FILTRATION RATE 58.1 (>39); PHOSPHORUS LEVEL 3.8 MG/DL (2.5-4.9); POTASSIUM SERUM 3.7 MEQ/L (3.5-5.1)
== END ==
LOC: SKLAB2 07:00
DX: N18.9 Chronic kidney disease, unspecified (principal)

== ENCOUNTER → 2019-12-18 | Outpatient (REF) | payer MEDICARE, BC ==
[2020-02-27 13:54] LABS: HEMOGLOBIN A1c 5.9 %
== END ==
LOC: SKLAB2 12:32
DX: E11.9 Type 2 diabetes mellitus without complications (principal); I50.9 Heart failure, unspecified

== ENCOUNTER → 2019-12-19 | Outpatient (CLI) | payer MEDICARE, BC ==
--- NOTE | 2020-01-30 10:51 | REP ---
BILATERAL LOWER EXTREMITY DUPLEX DOPPLER VENOUS ULTRASOUND HISTORY: Bilateral leg swelling. TECHNIQUE: Real time compression and duplex Doppler interrogation of bilateral lower extremity deep venous systems is performed. FINDINGS: Bilaterally, the common femoral, superficial femoral, and popliteal veins are fully compressible with transducer pressure and demonstrate normal spontaneous and phasic flow without evidence of deep venous thrombosis. IMPRESSION: No evidence of deep vein thrombosis of bilateral lower extremity femoral popliteal venous systems. [facility]
--- NOTE | 2020-02-05 10:14 | REP ---
RENAL ULTRASOUND HISTORY: Chronic kidney disease. TECHNIQUE: Real-time sonographic evaluation of the kidneys is performed. FINDINGS: Kidneys are normal in size and echotexture. Right kidney measuring 10.1 x 5.4 x 4.7 cm and the left kidney 9.3 x 4.8 x 4.5 cm. There is no hydronephrosis bilaterally. There appears to be an extrarenal pelvis of the right kidney. No renal mass is seen. Urinary bladder is mildly distended and grossly unremarkable. IMPRESSION: Essentially negative renal ultrasound. No hydronephrosis. Extrarenal pelvis right kidney. MTDD
== END ==
LOC: M RAD 11:06
PROVIDERS: ATTEND Internal Medicine Nephrology
DX: N18.3 Chronic kidney disease, stage 3 (moderate) (principal); E11.22 Type 2 diabetes mellitus with diabetic chronic kidney disease; I50.32 Chronic diastolic (congestive) heart failure; R60.0 Localized edema

== ENCOUNTER → 2020-01-09 | Outpatient (CLI) | payer MEDICARE, BC ==
--- NOTE | 2020-02-05 08:42 | REP ---
LEFT KNEE SERIES CLINICAL: Left knee pain. Arthritis. TECHNIQUE: AP, lateral, bilateral oblique views of the left knee. COMPARISON: None. FINDINGS: Age-related osteopenia and advanced tricompartmental osteoarthritic degenerative changes are appreciated along with element of dystrophic calcification along the medial lateral aspect of the knee possibly within the adjacent soft tissues. Findings include osteophytosis, cortical irregularities, and consider joint space narrowing along with elements of chondrocalcinosis. IMPRESSION: Advanced tricompartmental osteoarthritic degenerative changes. MTDD
== END ==
LOC: M RAD 09:35
PROVIDERS: ATTEND Internal Medicine
DX: M17.12 Unilateral primary osteoarthritis, left knee (principal)

== ENCOUNTER → 2020-01-09 | Outpatient (REF) | payer MEDICARE, BC | LOC: SKLAB2 08:51 | DX: M19.90 Unspecified osteoarthritis, unspecified site (principal) ==

== ENCOUNTER → 2020-01-22 | Outpatient (REF) | payer MEDICARE, BC ==
[2020-01-22 08:27] LABS: HEMATOCRIT 33.2 % (36.0-47.0); HEMOGLOBIN 10.1 g/dl (12.0-15.5); MEAN CORPUSCULAR HEMOGLOBIN 29.4 pg (27.0-33.0); MEAN CORPUSCULAR HGB CONC 30.4 g/dl (32.0-36.5); MEAN CORPUSCULAR VOLUME 96.8 fl (80.0-96.0); PLATELET COUNT, AUTOMATED 112 10^3/uL (150-450); RED BLOOD COUNT 3.43 10^6/uL (4.00-5.40); WHITE BLOOD COUNT 4.9 10^3/uL (4.0-10.0)
[2020-01-22 08:55] LABS: ALBUMIN 3.1 GM/DL (3.2-5.2); BILIRUBIN,TOTAL 0.3 MG/DL (0.2-1.0); CALCIUM LEVEL 9.2 MG/DL (8.8-10.2); CREATININE FOR GFR 1.11 MG/DL (0.55-1.30); GLOMERULAR FILTRATION RATE 50.9 (>39); MAGNESIUM LEVEL 2.2 MG/DL (1.8-2.4); POTASSIUM SERUM 4.6 MEQ/L (3.5-5.1); TOTAL PROTEIN 6.8 GM/DL (6.4-8.2)
== END ==
LOC: SKLAB2 07:00
DX: I11.0 Hypertensive heart disease with heart failure (principal); I50.9 Heart failure, unspecified; D64.9 Anemia, unspecified; E11.9 Type 2 diabetes mellitus without complications

== ENCOUNTER → 2020-03-20 | Outpatient (REF) | payer BC, MEDICARE | LOC: SKLAB2 11:33 | DX: Z20.828 Contact with and (suspected) exposure to other viral communicable diseases (principal) ==

== ENCOUNTER → 2020-04-09 | Outpatient (REF) | payer MEDICARE, BC | LOC: SKLAB2 08:00 | DX: Z20.828 Contact with and (suspected) exposure to other viral communicable diseases (principal) ==

== ENCOUNTER → 2020-04-16 | Outpatient (REF) | payer MEDICARE, BC | LOC: SKLAB2 07:24 | DX: Z20.828 Contact with and (suspected) exposure to other viral communicable diseases (principal) ==

== ENCOUNTER → 2020-04-22 | Outpatient (REF) | payer MEDICARE, BC ==
[2020-04-22 10:12] LABS: HEMATOCRIT 31.5 % (36.0-47.0); HEMOGLOBIN 9.7 g/dl (12.0-15.5); MEAN CORPUSCULAR HEMOGLOBIN 31.3 pg (27.0-33.0); MEAN CORPUSCULAR HGB CONC 30.8 g/dl (32.0-36.5); MEAN CORPUSCULAR VOLUME 101.6 fl (80.0-96.0); PLATELET COUNT, AUTOMATED 135 10^3/uL (150-450); WHITE BLOOD COUNT 4.9 10^3/uL (4.0-10.0)
[2020-04-22 10:44] LABS: CALCIUM LEVEL 9.1 MG/DL (8.8-10.2); CREATININE FOR GFR 1.25 MG/DL (0.55-1.30); GLOMERULAR FILTRATION RATE 44.4 (>39); MAGNESIUM LEVEL 2.3 MG/DL (1.8-2.4); POTASSIUM SERUM 4.5 MEQ/L (3.5-5.1)
== END ==
LOC: SKLAB2 08:00
DX: I50.9 Heart failure, unspecified (principal); D64.9 Anemia, unspecified; E83.42 Hypomagnesemia

== ENCOUNTER → 2020-04-23 | Outpatient (REF) | payer MEDICARE, BC | LOC: SKLAB2 11:30 | DX: Z20.828 Contact with and (suspected) exposure to other viral communicable diseases (principal) ==

== ENCOUNTER → 2020-04-30 | Outpatient (REF) | payer MEDICARE, BC | LOC: SKLAB2 08:24 | DX: Z20.828 Contact with and (suspected) exposure to other viral communicable diseases (principal) ==

== ENCOUNTER → 2020-05-07 | Outpatient (REF) | payer MEDICARE, BC | LOC: SKLAB2 10:31 | DX: Z20.828 Contact with and (suspected) exposure to other viral communicable diseases (principal) ==

== ENCOUNTER → 2020-05-14 | Outpatient (REF) | payer MEDICARE, BC | LOC: SKLAB2 07:00 | PROVIDERS: ATTEND Internal Medicine | DX: Z11.52 Encounter for screening for COVID-19 (principal) ==

== ENCOUNTER → 2020-05-21 | Outpatient (REF) | payer MEDICARE, BC | LOC: SKLAB2 07:00 | PROVIDERS: ATTEND Internal Medicine | DX: Z20.822 Contact with and (suspected) exposure to COVID-19 (principal) ==

== ENCOUNTER → 2020-05-28 | Outpatient (REF) | payer MEDICARE, BC | LOC: SKLAB2 07:00 | PROVIDERS: ATTEND Internal Medicine | DX: Z20.822 Contact with and (suspected) exposure to COVID-19 (principal) ==

== ENCOUNTER → 2020-06-04 | Outpatient (REF) | payer MEDICARE, BC | LOC: SKLAB2 13:56 | PROVIDERS: ATTEND Internal Medicine | DX: Z20.822 Contact with and (suspected) exposure to COVID-19 (principal) ==

== ENCOUNTER → 2020-06-11 | Outpatient (REF) | payer MEDICARE, BC | LOC: SKLAB2 11:13 | PROVIDERS: ATTEND Internal Medicine | DX: Z20.822 Contact with and (suspected) exposure to COVID-19 (principal) ==

== ENCOUNTER → 2020-06-18 | Outpatient (REF) | payer MEDICARE, BC | LOC: SKLAB2 10:27 | PROVIDERS: ATTEND Internal Medicine | DX: Z20.822 Contact with and (suspected) exposure to COVID-19 (principal) ==

== ENCOUNTER → 2020-06-25 | Outpatient (REF) | payer MEDICARE, BC | LOC: SKLAB2 08:25 | PROVIDERS: ATTEND Internal Medicine | DX: Z20.822 Contact with and (suspected) exposure to COVID-19 (principal) ==

== ENCOUNTER → 2020-07-02 | Outpatient (REF) | payer MEDICARE, BC | LOC: SKLAB2 09:52 | PROVIDERS: ATTEND Internal Medicine | DX: Z20.822 Contact with and (suspected) exposure to COVID-19 (principal) ==

== ENCOUNTER → 2020-07-04 | Outpatient (REF) | payer MEDICARE, BC ==
[2020-07-04 08:48] LABS: CALCIUM LEVEL 9.2 MG/DL (8.8-10.2); CREATININE FOR GFR 1.16 MG/DL (0.55-1.30); FREE T4 0.93 NG/DL (0.76-1.46); GLOMERULAR FILTRATION RATE 48.2 (>39); POTASSIUM SERUM 4.7 MEQ/L (3.5-5.1); THYROID STIMULATING HORMONE 4.18 uIU/ML (0.358-3.740)
== END ==
LOC: SKLAB2 14:46
DX: I50.9 Heart failure, unspecified (principal); I11.0 Hypertensive heart disease with heart failure

== ENCOUNTER → 2020-07-15 | Outpatient (REF) | payer MEDICARE, BC ==
[2020-07-15 07:43] LABS: HEMOGLOBIN 9.9 g/dl (12.0-15.5); MEAN CORPUSCULAR HEMOGLOBIN 30.7 pg (27.0-33.0); MEAN CORPUSCULAR VOLUME 102.2 fl (80.0-96.0); PLATELET COUNT, AUTOMATED 119 10^3/uL (150-450); RED BLOOD COUNT 3.23 10^6/uL (4.00-5.40); WHITE BLOOD COUNT 5.1 10^3/uL (4.0-10.0)
[2020-07-15 08:01] LABS: HEMOGLOBIN A1c 6.2 %
[2020-07-15 08:04] LABS: ALBUMIN 3.2 GM/DL (3.2-5.2); BILIRUBIN,TOTAL 0.2 MG/DL (0.2-1.0); CALCIUM LEVEL 9.2 MG/DL (8.8-10.2); CREATININE FOR GFR 1.05 MG/DL (0.55-1.30); GLOMERULAR FILTRATION RATE 54.1 (>39); MAGNESIUM LEVEL 2.2 MG/DL (1.8-2.4); POTASSIUM SERUM 4.7 MEQ/L (3.5-5.1); TOTAL PROTEIN 6.8 GM/DL (6.4-8.2)
== END ==
LOC: SKLAB2 10:46
DX: D64.9 Anemia, unspecified (principal); I10 Essential (primary) hypertension; Z79.899 Other long term (current) drug therapy

== ENCOUNTER → 2020-07-16 | Outpatient (REF) | payer MEDICARE, BC | LOC: SKLAB2 08:00 | PROVIDERS: ATTEND Internal Medicine | DX: Z11.52 Encounter for screening for COVID-19 (principal) ==

== ENCOUNTER → 2020-07-23 | Outpatient (REF) | payer MEDICARE, BC | LOC: SKLAB2 08:00 | PROVIDERS: ATTEND Internal Medicine | DX: Z20.822 Contact with and (suspected) exposure to COVID-19 (principal) ==

== ENCOUNTER → 2020-08-05 | Outpatient (REF) | payer MEDICARE, BC ==
[2020-08-05 10:03] LABS: FREE T4 0.89 NG/DL (0.76-1.46); THYROID STIMULATING HORMONE 3.13 uIU/ML (0.358-3.740)
== END ==
LOC: SKLAB2 08:00
PROVIDERS: ATTEND Internal Medicine
DX: R94.6 Abnormal results of thyroid function studies (principal)

== ENCOUNTER → 2020-08-08 | Outpatient (REF) | payer MEDICARE, BC ==
[2020-08-08 09:51] LABS: CHOLESTEROL RISK RATIO 1.912 (<5)
== END ==
LOC: SKLAB2 08:00
PROVIDERS: ATTEND Internal Medicine
DX: E78.5 Hyperlipidemia, unspecified (principal)

== ENCOUNTER → 2020-08-08 | Outpatient (REF) | payer MEDICARE, BC | LOC: SKLAB2 08:00 | PROVIDERS: ATTEND Internal Medicine | DX: Z20.822 Contact with and (suspected) exposure to COVID-19 (principal) ==

== ENCOUNTER → 2020-08-12 | Outpatient (REF) | payer MEDICARE, BC ==
[2020-08-12 08:42] LABS: HEMATOCRIT 32.8 % (36.0-47.0); HEMOGLOBIN 9.9 g/dl (12.0-15.5); MEAN CORPUSCULAR HEMOGLOBIN 31.2 pg (27.0-33.0); MEAN CORPUSCULAR HGB CONC 30.2 g/dl (32.0-36.5); MEAN CORPUSCULAR VOLUME 103.5 fl (80.0-96.0); PLATELET COUNT, AUTOMATED 110 10^3/uL (150-450); RED BLOOD COUNT 3.17 10^6/uL (4.00-5.40); WHITE BLOOD COUNT 5.2 10^3/uL (4.0-10.0)
== END ==
LOC: SKLAB2 08:00
PROVIDERS: ATTEND Internal Medicine
DX: D64.9 Anemia, unspecified (principal)

== ENCOUNTER → 2020-08-19 | Outpatient (REF) | payer MEDICARE, BC ==
[2020-08-19 09:10] LABS: HEMATOCRIT 35.2 % (36.0-47.0); HEMOGLOBIN 10.8 g/dl (12.0-15.5); MEAN CORPUSCULAR HEMOGLOBIN 31.2 pg (27.0-33.0); MEAN CORPUSCULAR HGB CONC 30.7 g/dl (32.0-36.5); MEAN CORPUSCULAR VOLUME 101.7 fl (80.0-96.0); PLATELET COUNT, AUTOMATED 122 10^3/uL (150-450); RED BLOOD COUNT 3.46 10^6/uL (4.00-5.40); WHITE BLOOD COUNT 5.9 10^3/uL (4.0-10.0)
== END ==
LOC: SKLAB2 08:00
PROVIDERS: ATTEND Internal Medicine
DX: D64.9 Anemia, unspecified (principal)

== ENCOUNTER → 2020-09-16 | Outpatient (REF) | payer MEDICARE, BC ==
[2020-09-16 09:06] LABS: HEMATOCRIT 33.3 % (36.0-47.0); HEMOGLOBIN 10.2 g/dl (12.0-15.5); MEAN CORPUSCULAR HEMOGLOBIN 30.8 pg (27.0-33.0); MEAN CORPUSCULAR HGB CONC 30.6 g/dl (32.0-36.5); MEAN CORPUSCULAR VOLUME 100.6 fl (80.0-96.0); PLATELET COUNT, AUTOMATED 122 10^3/uL (150-450); RED BLOOD COUNT 3.31 10^6/uL (4.00-5.40); WHITE BLOOD COUNT 5.6 10^3/uL (4.0-10.0)
== END ==
LOC: SKLAB2 11:58
DX: D64.9 Anemia, unspecified (principal)

== ENCOUNTER → 2020-10-14 | Outpatient (REF) | payer MEDICARE, BC ==
[2020-10-14 11:00] LABS: HEMOGLOBIN 9.6 g/dl (12.0-15.5); MEAN CORPUSCULAR HEMOGLOBIN 30.7 pg (27.0-33.0); MEAN CORPUSCULAR VOLUME 102.2 fl (80.0-96.0); PLATELET COUNT, AUTOMATED 126 10^3/uL (150-450); RED BLOOD COUNT 3.13 10^6/uL (4.00-5.40); WHITE BLOOD COUNT 6.3 10^3/uL (4.0-10.0)
[2020-10-14 11:56] LABS: CALCIUM LEVEL 9.6 MG/DL (8.8-10.2); CREATININE FOR GFR 0.97 MG/DL (0.55-1.30); GLOMERULAR FILTRATION RATE 59.3 (>39); MAGNESIUM LEVEL 2.1 MG/DL (1.8-2.4); POTASSIUM SERUM 4.3 MEQ/L (3.5-5.1)
== END ==
LOC: SKLAB2 13:30
DX: D64.9 Anemia, unspecified (principal); I50.9 Heart failure, unspecified; I11.0 Hypertensive heart disease with heart failure

== ENCOUNTER → 2020-10-21 | Outpatient (REF) | payer MEDICARE, BC ==
[2020-10-21 09:22] LABS: CALCIUM LEVEL 9.3 MG/DL (8.8-10.2); CREATININE FOR GFR 1.11 MG/DL (0.55-1.30); GLOMERULAR FILTRATION RATE 50.7 (>39); POTASSIUM SERUM 4.4 MEQ/L (3.5-5.1)
== END ==
LOC: SKLAB2 11:31
DX: I11.0 Hypertensive heart disease with heart failure (principal); I50.9 Heart failure, unspecified

== ENCOUNTER → 2020-11-18 | Outpatient (REF) | payer MEDICARE, BC ==
[2020-11-18 09:51] LABS: HEMATOCRIT 32.3 % (36.0-47.0); MEAN CORPUSCULAR HEMOGLOBIN 31.3 pg (27.0-33.0); MEAN CORPUSCULAR VOLUME 101.3 fl (80.0-96.0); PLATELET COUNT, AUTOMATED 115 10^3/uL (150-450); RED BLOOD COUNT 3.19 10^6/uL (4.00-5.40); WHITE BLOOD COUNT 5.8 10^3/uL (4.0-10.0)
== END ==
LOC: SKLAB2 16:10
DX: D64.9 Anemia, unspecified (principal)

== ENCOUNTER → 2020-12-16 | Outpatient (REF) | payer MEDICARE, BC ==
[2020-12-16 08:43] LABS: HEMATOCRIT 31.5 % (36.0-47.0); HEMOGLOBIN 9.6 g/dl (12.0-15.5); MEAN CORPUSCULAR HEMOGLOBIN 30.9 pg (27.0-33.0); MEAN CORPUSCULAR HGB CONC 30.5 g/dl (32.0-36.5); MEAN CORPUSCULAR VOLUME 101.3 fl (80.0-96.0); PLATELET COUNT, AUTOMATED 118 10^3/uL (150-450); RED BLOOD COUNT 3.11 10^6/uL (4.00-5.40); WHITE BLOOD COUNT 6.8 10^3/uL (4.0-10.0)
== END ==
LOC: SKLAB2 07:00
PROVIDERS: ATTEND Neuromusculoskeletal Medicine & OMM
DX: D64.9 Anemia, unspecified (principal)

== ENCOUNTER → 2021-01-20 | Outpatient (REF) | payer MEDICARE, BC ==
[2021-01-20 12:39] LABS: HEMATOCRIT 31.2 % (36.0-47.0); HEMOGLOBIN 9.6 g/dl (12.0-15.5); MEAN CORPUSCULAR HEMOGLOBIN 31.4 pg (27.0-33.0); MEAN CORPUSCULAR HGB CONC 30.8 g/dl (32.0-36.5); PLATELET COUNT, AUTOMATED 130 10^3/uL (150-450); RED BLOOD COUNT 3.06 10^6/uL (4.00-5.40)
[2021-01-20 12:53] LABS: BILIRUBIN,TOTAL 0.3 MG/DL (0.2-1.0); CALCIUM LEVEL 9.4 MG/DL (8.8-10.2); CREATININE FOR GFR 1.38 MG/DL (0.55-1.30); GLOMERULAR FILTRATION RATE 39.5 (>39); MAGNESIUM LEVEL 2.3 MG/DL (1.8-2.4); POTASSIUM SERUM 4.8 MEQ/L (3.5-5.1); TOTAL PROTEIN 6.5 GM/DL (6.4-8.2)
[2021-01-20 15:40] LABS: HEMOGLOBIN A1c 6.5 %
== END ==
LOC: SKLAB2 10:52
PROVIDERS: ATTEND Neuromusculoskeletal Medicine & OMM
DX: D64.9 Anemia, unspecified (principal); E11.9 Type 2 diabetes mellitus without complications

== ENCOUNTER → 2021-02-26 | Outpatient (REF) | payer MEDICARE, BC | LOC: SKLAB6 09:09 | PROVIDERS: ATTEND Neuromusculoskeletal Medicine & OMM | DX: Z20.822 Contact with and (suspected) exposure to COVID-19 (principal) ==

== ENCOUNTER → 2021-03-02 | Outpatient (REF) | payer MEDICARE, BC | LOC: SKLAB6 06:00 | PROVIDERS: ATTEND Neuromusculoskeletal Medicine & OMM | DX: Z20.822 Contact with and (suspected) exposure to COVID-19 (principal) ==

== ENCOUNTER → 2021-03-03 | Outpatient (REF) | payer MEDICARE, BC ==
[2021-03-03 14:13] LABS: HEMATOCRIT 36.9 % (36.0-47.0); HEMOGLOBIN 11.3 g/dl (12.0-15.5); MEAN CORPUSCULAR HEMOGLOBIN 31.5 pg (27.0-33.0); MEAN CORPUSCULAR HGB CONC 30.6 g/dl (32.0-36.5); MEAN CORPUSCULAR VOLUME 102.8 fl (80.0-96.0); PLATELET COUNT, AUTOMATED 136 10^3/uL (150-450); RED BLOOD COUNT 3.59 10^6/uL (4.00-5.40); WHITE BLOOD COUNT 6.9 10^3/uL (4.0-10.0)
[2021-03-03 14:46] LABS: ALBUMIN 3.3 GM/DL (3.2-5.2); BILIRUBIN,TOTAL 0.4 MG/DL (0.2-1.0); C REACTIVE PROTEIN QUANTITATIV 0.47 MG/DL (0.00-0.30); CALCIUM LEVEL 9.8 MG/DL (8.8-10.2); CREATININE FOR GFR 1.11 MG/DL (0.55-1.30); GLOMERULAR FILTRATION RATE 50.7 (>39); POTASSIUM SERUM 4.4 MEQ/L (3.5-5.1); TOTAL PROTEIN 7.7 GM/DL (6.4-8.2)
== END ==
LOC: SKLAB6 12:19
PROVIDERS: ATTEND Neuromusculoskeletal Medicine & OMM
DX: U07.1 COVID-19 (principal); Z79.899 Other long term (current) drug therapy

== ENCOUNTER → 2021-03-04 | Outpatient (REF) | payer MEDICARE, BC ==
[~2021-03-04] MED LIST changes: +ACETAMINOPHEN TAB 650MG DOSE (2X325MG) PO ONE; +ALBUTEROL 90 MCG/ACT 8GM HFA INHALER INH PRN; +ALBUTEROL SULFATE 2.5 MG/0.5 ML INH NEB SOLN INH PRN; +BAMLANIVIMAB 700 MG, ETESEVIMAB 1,400 MG in NS 250 ML IV ONE; +EPINEPHrine INJ 1 MG/ML 1ML AMP IM PRN; +NS 1,000 ML IV SCH; -OMEP-221 PO; +OMEP40CA5 PO; +diphenhydrAMINE 50MG/ML VIAL (J1200) IV ONE; +diphenhydrAMINE 50MG/ML VIAL (J1200) IV PRN; +methylPREDNISolone 125MG 2ML VIAL IV ONE; +methylPREDNISolone 125MG 2ML VIAL IV PRN
== END ==
LOC: SKLAB2 09:41
PROVIDERS: ATTEND Neuromusculoskeletal Medicine & OMM
DX: U07.1 COVID-19 (principal)

== ENCOUNTER → 2021-03-06 | Outpatient (REF) | payer MEDICARE, BC ==
[~2021-03-06] MED LIST changes: -ACETAMINOPHEN TAB 650MG DOSE (2X325MG) PO ONE; -ALBUTEROL 90 MCG/ACT 8GM HFA INHALER INH PRN; -ALBUTEROL SULFATE 2.5 MG/0.5 ML INH NEB SOLN INH PRN; -BAMLANIVIMAB 700 MG, ETESEVIMAB 1,400 MG in NS 250 ML IV ONE; -EPINEPHrine INJ 1 MG/ML 1ML AMP IM PRN; -NS 1,000 ML IV SCH; +OMEP-221 PO; -OMEP40CA5 PO; -diphenhydrAMINE 50MG/ML VIAL (J1200) IV ONE; -diphenhydrAMINE 50MG/ML VIAL (J1200) IV PRN; -methylPREDNISolone 125MG 2ML VIAL IV ONE; -methylPREDNISolone 125MG 2ML VIAL IV PRN
[2021-03-06 11:24] LABS: HEMATOCRIT 33.5 % (36.0-47.0); HEMOGLOBIN 10.3 g/dl (12.0-15.5); MEAN CORPUSCULAR HEMOGLOBIN 31.2 pg (27.0-33.0); MEAN CORPUSCULAR HGB CONC 30.7 g/dl (32.0-36.5); MEAN CORPUSCULAR VOLUME 101.5 fl (80.0-96.0); PLATELET COUNT, AUTOMATED 129 10^3/uL (150-450); WHITE BLOOD COUNT 11.2 10^3/uL (4.0-10.0)
[2021-03-06 12:53] LABS: CALCIUM LEVEL 9.6 MG/DL (8.8-10.2); CREATININE FOR GFR 1.26 MG/DL (0.55-1.30); GLOMERULAR FILTRATION RATE 43.8 (>39); POTASSIUM SERUM 4.7 MEQ/L (3.5-5.1)
== END ==
LOC: SKLAB2 07:00
PROVIDERS: ATTEND Neuromusculoskeletal Medicine & OMM
DX: U07.1 COVID-19 (principal); Z79.899 Other long term (current) drug therapy

== ENCOUNTER → 2021-03-09 | Outpatient (REF) | payer MEDICARE, BC ==
[2021-03-09 09:35] LABS: HEMATOCRIT 37.3 % (36.0-47.0); HEMOGLOBIN 11.4 g/dl (12.0-15.5); MEAN CORPUSCULAR HEMOGLOBIN 30.8 pg (27.0-33.0); MEAN CORPUSCULAR HGB CONC 30.6 g/dl (32.0-36.5); MEAN CORPUSCULAR VOLUME 100.8 fl (80.0-96.0); PLATELET COUNT, AUTOMATED 129 10^3/uL (150-450); WHITE BLOOD COUNT 7.9 10^3/uL (4.0-10.0)
[2021-03-09 10:26] LABS: CREATININE FOR GFR 1.07 MG/DL (0.55-1.30); GLOMERULAR FILTRATION RATE 52.9 (>39); POTASSIUM SERUM 4.1 MEQ/L (3.5-5.1)
== END ==
LOC: SKLAB2 09:46
PROVIDERS: ATTEND Neuromusculoskeletal Medicine & OMM
DX: U07.1 COVID-19 (principal); Z79.899 Other long term (current) drug therapy

== ENCOUNTER → 2021-03-11 | Outpatient (REF) | payer MEDICARE, BC ==
[2021-03-11 11:12] LABS: HEMATOCRIT 36.2 % (36.0-47.0); HEMOGLOBIN 11.2 g/dl (12.0-15.5); MEAN CORPUSCULAR HEMOGLOBIN 31.2 pg (27.0-33.0); MEAN CORPUSCULAR HGB CONC 30.9 g/dl (32.0-36.5); MEAN CORPUSCULAR VOLUME 100.8 fl (80.0-96.0); PLATELET COUNT, AUTOMATED 135 10^3/uL (150-450); RED BLOOD COUNT 3.59 10^6/uL (4.00-5.40); WHITE BLOOD COUNT 8.2 10^3/uL (4.0-10.0)
[2021-03-11 11:37] LABS: CALCIUM LEVEL 9.4 MG/DL (8.8-10.2); CREATININE FOR GFR 1.17 MG/DL (0.55-1.30); GLOMERULAR FILTRATION RATE 47.7 (>39); POTASSIUM SERUM 4.5 MEQ/L (3.5-5.1)
== END ==
LOC: SKLAB2 07:00
PROVIDERS: ATTEND Neuromusculoskeletal Medicine & OMM
DX: U07.1 COVID-19 (principal); Z79.899 Other long term (current) drug therapy

== ENCOUNTER → 2021-03-13 | Outpatient (REF) | payer MEDICARE, BC ==
[2021-03-13 10:19] LABS: HEMOGLOBIN 10.6 g/dl (12.0-15.5); MEAN CORPUSCULAR HEMOGLOBIN 31.7 pg (27.0-33.0); MEAN CORPUSCULAR HGB CONC 31.2 g/dl (32.0-36.5); MEAN CORPUSCULAR VOLUME 101.8 fl (80.0-96.0); PLATELET COUNT, AUTOMATED 121 10^3/uL (150-450); RED BLOOD COUNT 3.34 10^6/uL (4.00-5.40); WHITE BLOOD COUNT 7.9 10^3/uL (4.0-10.0)
[2021-03-13 10:27] LABS: CALCIUM LEVEL 9.2 MG/DL (8.8-10.2); CREATININE FOR GFR 1.09 MG/DL (0.55-1.30); GLOMERULAR FILTRATION RATE 51.8 (>39); POTASSIUM SERUM 4.3 MEQ/L (3.5-5.1)
== END ==
LOC: SKLAB2 08:18
PROVIDERS: ATTEND Neuromusculoskeletal Medicine & OMM
DX: U07.1 COVID-19 (principal); Z79.899 Other long term (current) drug therapy

== ENCOUNTER → 2021-03-25 | Outpatient (REF) | payer MEDICARE, BC ==
[2021-03-25 14:55] LABS: HEMATOCRIT 30.5 % (36.0-47.0); HEMOGLOBIN 9.4 g/dl (12.0-15.5); MEAN CORPUSCULAR HEMOGLOBIN 31.2 pg (27.0-33.0); MEAN CORPUSCULAR HGB CONC 30.8 g/dl (32.0-36.5); MEAN CORPUSCULAR VOLUME 101.3 fl (80.0-96.0); PLATELET COUNT, AUTOMATED 133 10^3/uL (150-450); RED BLOOD COUNT 3.01 10^6/uL (4.00-5.40); WHITE BLOOD COUNT 6.4 10^3/uL (4.0-10.0)
[2021-03-25 15:12] LABS: CALCIUM LEVEL 9.4 MG/DL (8.8-10.2); CREATININE FOR GFR 1.42 MG/DL (0.55-1.30); GLOMERULAR FILTRATION RATE 38.2 (>39); POTASSIUM SERUM 4.9 MEQ/L (3.5-5.1)
== END ==
LOC: SKLAB4 13:47
PROVIDERS: ATTEND Neuromusculoskeletal Medicine & OMM
DX: I50.9 Heart failure, unspecified (principal); L03.90 Cellulitis, unspecified

== ENCOUNTER → 2021-03-27 | Outpatient (REF) | payer MEDICARE, BC ==
[2021-03-27 11:11] LABS: CALCIUM LEVEL 9.3 MG/DL (8.8-10.2); CREATININE FOR GFR 1.41 MG/DL (0.55-1.30); GLOMERULAR FILTRATION RATE 38.5 (>39); POTASSIUM SERUM 4.6 MEQ/L (3.5-5.1)
== END ==
LOC: SKLAB4 07:00
PROVIDERS: ATTEND Neuromusculoskeletal Medicine & OMM
DX: N18.9 Chronic kidney disease, unspecified (principal)

== ENCOUNTER → 2021-03-31 | Outpatient (REF) | payer MEDICARE, BC ==
[2021-03-31 10:27] LABS: HEMOGLOBIN A1c 6.6 %
[2021-03-31 10:29] LABS: CALCIUM LEVEL 9.5 MG/DL (8.8-10.2); CHOLESTEROL RISK RATIO 2.315 (<5); CREATININE FOR GFR 1.34 MG/DL (0.55-1.30); GLOMERULAR FILTRATION RATE 40.8 (>39); POTASSIUM SERUM 5.1 MEQ/L (3.5-5.1)
[2021-03-31 11:53] LABS: CREATININE, URINE 71.9 MG/DL; MALB URINE SIEMENS < 5.0 MG/L; MAU/CREAT RATIO 6.9 MCG/MG (0.0-30.0)
[2021-03-31 13:54] LABS: HEMATOCRIT 32.8 % (36.0-47.0); HEMOGLOBIN 10.3 g/dl (12.0-15.5); MEAN CORPUSCULAR HEMOGLOBIN 31.8 pg (27.0-33.0); MEAN CORPUSCULAR HGB CONC 31.4 g/dl (32.0-36.5); MEAN CORPUSCULAR VOLUME 101.2 fl (80.0-96.0); PLATELET COUNT, AUTOMATED 154 10^3/uL (150-450); RED BLOOD COUNT 3.24 10^6/uL (4.00-5.40)
== END ==
LOC: SKLAB4 09:00
PROVIDERS: ATTEND Neuromusculoskeletal Medicine & OMM
DX: I50.9 Heart failure, unspecified (principal); E11.9 Type 2 diabetes mellitus without complications

== ENCOUNTER → 2021-04-14 | Outpatient (REF) | payer MEDICARE, BC ==
[2021-04-14 10:38] LABS: CALCIUM LEVEL 9.4 MG/DL (8.8-10.2); CREATININE FOR GFR 1.36 MG/DL (0.55-1.30); GLOMERULAR FILTRATION RATE 40.1 (>39); POTASSIUM SERUM 4.8 MEQ/L (3.5-5.1)
== END ==
LOC: SKLAB4 07:00
PROVIDERS: ATTEND Neuromusculoskeletal Medicine & OMM
DX: I50.9 Heart failure, unspecified (principal)

== ENCOUNTER → 2021-05-14 | Outpatient (REF) | payer MEDICARE, BC ==
[2021-05-14 11:25] LABS: HEMATOCRIT 31.8 % (36.0-47.0); HEMOGLOBIN 9.7 g/dl (12.0-15.5); MEAN CORPUSCULAR HEMOGLOBIN 30.8 pg (27.0-33.0); MEAN CORPUSCULAR HGB CONC 30.5 g/dl (32.0-36.5); PLATELET COUNT, AUTOMATED 139 10^3/uL (150-450); RED BLOOD COUNT 3.15 10^6/uL (4.00-5.40); WHITE BLOOD COUNT 7.2 10^3/uL (4.0-10.0)
[2021-05-14 12:04] LABS: CALCIUM LEVEL 9.6 MG/DL (8.8-10.2); CREATININE FOR GFR 1.43 MG/DL (0.55-1.30); GLOMERULAR FILTRATION RATE 37.8 (>39); MAGNESIUM LEVEL 2.3 MG/DL (1.8-2.4); POTASSIUM SERUM 4.8 MEQ/L (3.5-5.1)
== END ==
LOC: SKLAB4 07:00
PROVIDERS: ATTEND Neuromusculoskeletal Medicine & OMM
DX: R60.9 Edema, unspecified (principal)

== ENCOUNTER → 2021-06-25 | Outpatient (REF) | payer MEDICARE, BC ==
[~2021-06-25] MED LIST changes: -OMEP-221 PO; +OMEP40CA5 PO
[2021-06-25 11:17] LABS: HEMATOCRIT 31.2 % (36.0-47.0); HEMOGLOBIN 9.4 g/dl (12.0-15.5); MEAN CORPUSCULAR HGB CONC 30.1 g/dl (32.0-36.5); PLATELET COUNT, AUTOMATED 139 10^3/uL (150-450); RED BLOOD COUNT 3.03 10^6/uL (4.00-5.40); WHITE BLOOD COUNT 6.3 10^3/uL (4.0-10.0)
== END ==
LOC: SKLAB4 07:00
PROVIDERS: ATTEND Neuromusculoskeletal Medicine & OMM
DX: D64.9 Anemia, unspecified (principal)

== ENCOUNTER → 2021-08-04 | Outpatient (REF) | payer MEDICARE, BC ==
[2021-08-04 09:59] LABS: HEMATOCRIT 32.9 % (36.0-47.0); MEAN CORPUSCULAR HEMOGLOBIN 30.7 pg (27.0-33.0); MEAN CORPUSCULAR HGB CONC 30.4 g/dl (32.0-36.5); MEAN CORPUSCULAR VOLUME 100.9 fl (80.0-96.0); PLATELET COUNT, AUTOMATED 156 10^3/uL (150-450); RED BLOOD COUNT 3.26 10^6/uL (4.00-5.40); WHITE BLOOD COUNT 8.8 10^3/uL (4.0-10.0)
== END ==
LOC: SKLAB4 07:00
PROVIDERS: ATTEND Neuromusculoskeletal Medicine & OMM
DX: D64.9 Anemia, unspecified (principal)

== ENCOUNTER → 2021-08-11 | Outpatient (REF) | payer MEDICARE, BC ==
[2021-08-11 11:04] LABS: HEMATOCRIT 30.6 % (36.0-47.0); HEMOGLOBIN 9.6 g/dl (12.0-15.5); MEAN CORPUSCULAR HEMOGLOBIN 31.1 pg (27.0-33.0); MEAN CORPUSCULAR HGB CONC 31.4 g/dl (32.0-36.5); PLATELET COUNT, AUTOMATED 145 10^3/uL (150-450); RED BLOOD COUNT 3.09 10^6/uL (4.00-5.40); WHITE BLOOD COUNT 5.9 10^3/uL (4.0-10.0)
[2021-08-11 11:26] LABS: CREATININE FOR GFR 1.22 MG/DL (0.55-1.30); GLOMERULAR FILTRATION RATE 45.4 (>39); POTASSIUM SERUM 4.2 MEQ/L (3.5-5.1)
== END ==
LOC: SKLAB4 07:00
PROVIDERS: ATTEND Neuromusculoskeletal Medicine & OMM
DX: R19.5 Other fecal abnormalities (principal)

== ENCOUNTER → 2021-08-25 | Outpatient (REF) | payer MEDICARE, BC ==
[2021-08-25 11:57] LABS: HEMOGLOBIN 8.8 g/dl (12.0-15.5); MEAN CORPUSCULAR HEMOGLOBIN 30.4 pg (27.0-33.0); MEAN CORPUSCULAR HGB CONC 30.3 g/dl (32.0-36.5); MEAN CORPUSCULAR VOLUME 100.3 fl (80.0-96.0); PLATELET COUNT, AUTOMATED 144 10^3/uL (150-450); RED BLOOD COUNT 2.89 10^6/uL (4.00-5.40); WHITE BLOOD COUNT 8.4 10^3/uL (4.0-10.0)
[2021-08-25 12:24] LABS: ALBUMIN 3.1 GM/DL (3.2-5.2); BILIRUBIN,TOTAL 0.3 MG/DL (0.2-1.0); CALCIUM LEVEL 9.1 MG/DL (8.8-10.2); CREATININE FOR GFR 1.36 MG/DL (0.55-1.30); MAGNESIUM LEVEL 2.3 MG/DL (1.8-2.4); POTASSIUM SERUM 5.1 MEQ/L (3.5-5.1); TOTAL PROTEIN 6.6 GM/DL (6.4-8.2)
== END ==
LOC: SKLAB4 11:19
PROVIDERS: ATTEND Neuromusculoskeletal Medicine & OMM
DX: E11.9 Type 2 diabetes mellitus without complications (principal); I50.9 Heart failure, unspecified

== ENCOUNTER → 2021-09-08 | Outpatient (REF) | payer MEDICARE, BC ==
[2021-09-08 09:36] LABS: HEMATOCRIT 30.8 % (36.0-47.0); HEMOGLOBIN 9.3 g/dl (12.0-15.5); MEAN CORPUSCULAR HEMOGLOBIN 30.6 pg (27.0-33.0); MEAN CORPUSCULAR HGB CONC 30.2 g/dl (32.0-36.5); MEAN CORPUSCULAR VOLUME 101.3 fl (80.0-96.0); PLATELET COUNT, AUTOMATED 153 10^3/uL (150-450); RED BLOOD COUNT 3.04 10^6/uL (4.00-5.40); WHITE BLOOD COUNT 6.2 10^3/uL (4.0-10.0)
== END ==
LOC: SKLAB4 08:50
PROVIDERS: ATTEND Neuromusculoskeletal Medicine & OMM
DX: D64.9 Anemia, unspecified (principal)

== ENCOUNTER → 2021-09-24 | Outpatient (REF) | payer MEDICARE, BC ==
[2021-09-24 11:17] LABS: HEMATOCRIT 31.4 % (36.0-47.0); HEMOGLOBIN 9.8 g/dl (12.0-15.5); MEAN CORPUSCULAR HGB CONC 31.2 g/dl (32.0-36.5); MEAN CORPUSCULAR VOLUME 99.4 fl (80.0-96.0); PLATELET COUNT, AUTOMATED 150 10^3/uL (150-450); RED BLOOD COUNT 3.16 10^6/uL (4.00-5.40); WHITE BLOOD COUNT 6.3 10^3/uL (4.0-10.0)
[2021-09-24 11:36] LABS: HEMOGLOBIN A1c 6.1 %
[2021-09-24 12:04] LABS: ALBUMIN 3.2 GM/DL (3.2-5.2); BILIRUBIN,TOTAL 0.3 MG/DL (0.2-1.0); CALCIUM LEVEL 9.4 MG/DL (8.8-10.2); CREATININE FOR GFR 1.39 MG/DL (0.55-1.30); POTASSIUM SERUM 4.6 MEQ/L (3.5-5.1); TOTAL PROTEIN 6.7 GM/DL (6.4-8.2)
== END ==
LOC: SKLAB4 14:10
PROVIDERS: ATTEND Neuromusculoskeletal Medicine & OMM
DX: E78.5 Hyperlipidemia, unspecified (principal); G40.909 Epilepsy, unspecified, not intractable, without status epilepticus; Z79.899 Other long term (current) drug therapy

== ENCOUNTER → 2021-10-22 | Outpatient (REF) | payer MEDICARE, BC ==
[2021-10-22 09:48] LABS: HEMATOCRIT 32.4 % (36.0-47.0); MEAN CORPUSCULAR HEMOGLOBIN 30.3 pg (27.0-33.0); MEAN CORPUSCULAR HGB CONC 30.9 g/dl (32.0-36.5); MEAN CORPUSCULAR VOLUME 98.2 fl (80.0-96.0); PLATELET COUNT, AUTOMATED 144 10^3/uL (150-450); WHITE BLOOD COUNT 6.4 10^3/uL (4.0-10.0)
[2021-10-22 10:18] LABS: ALBUMIN 3.1 GM/DL (3.2-5.2); BILIRUBIN,TOTAL 0.3 MG/DL (0.2-1.0); CALCIUM LEVEL 9.9 MG/DL (8.8-10.2); CREATININE FOR GFR 1.88 MG/DL (0.55-1.30); GLOMERULAR FILTRATION RATE 27.6 (>39); POTASSIUM SERUM 4.3 MEQ/L (3.5-5.1); TOTAL PROTEIN 6.6 GM/DL (6.4-8.2)
== END ==
LOC: SKLAB4 14:10
PROVIDERS: ATTEND Neuromusculoskeletal Medicine & OMM
DX: I50.9 Heart failure, unspecified (principal); D64.9 Anemia, unspecified

== ENCOUNTER → 2021-12-15 | Outpatient (REF) | payer MEDICARE, BC ==
[2021-12-15 15:26] LABS: HEMATOCRIT 31.6 % (36.0-47.0); HEMOGLOBIN 9.8 g/dl (12.0-15.5); MEAN CORPUSCULAR HEMOGLOBIN 30.6 pg (27.0-33.0); MEAN CORPUSCULAR VOLUME 98.8 fl (80.0-96.0); PLATELET COUNT, AUTOMATED 131 10^3/uL (150-450); WHITE BLOOD COUNT 8.6 10^3/uL (4.0-10.0)
[2021-12-15 18:28] LABS: ALBUMIN 2.9 GM/DL (3.2-5.2); BILIRUBIN,TOTAL 0.2 MG/DL (0.2-1.0); CALCIUM LEVEL 9.1 MG/DL (8.8-10.2); CREATININE FOR GFR 1.98 MG/DL (0.55-1.30); POTASSIUM SERUM 4.6 MEQ/L (3.5-5.1); TOTAL PROTEIN 6.3 GM/DL (6.4-8.2)
== END ==
LOC: SKLAB2 14:14
PROVIDERS: ATTEND Nurse Practitioner Family
DX: U07.1 COVID-19 (principal); Z79.899 Other long term (current) drug therapy

== ENCOUNTER → 2021-12-17 | Outpatient (REF) | payer BC, MEDICARE ==
[2021-12-17 13:15] LABS: HEMATOCRIT 33.6 % (36.0-47.0); HEMOGLOBIN 10.2 g/dl (12.0-15.5); MEAN CORPUSCULAR HEMOGLOBIN 30.4 pg (27.0-33.0); MEAN CORPUSCULAR HGB CONC 30.4 g/dl (32.0-36.5); MEAN CORPUSCULAR VOLUME 100.3 fl (80.0-96.0); PLATELET COUNT, AUTOMATED 110 10^3/uL (150-450); RED BLOOD COUNT 3.35 10^6/uL (4.00-5.40); WHITE BLOOD COUNT 6.5 10^3/uL (4.0-10.0)
[2021-12-17 14:10] LABS: ALBUMIN 2.8 GM/DL (3.2-5.2); BILIRUBIN,TOTAL 0.2 MG/DL (0.2-1.0); CALCIUM LEVEL 9.1 MG/DL (8.8-10.2); CREATININE FOR GFR 1.38 MG/DL (0.55-1.30); GLOMERULAR FILTRATION RATE 39.4 (>39); POTASSIUM SERUM 4.8 MEQ/L (3.5-5.1); TOTAL PROTEIN 6.5 GM/DL (6.4-8.2)
== END ==
LOC: SKLAB2 15:14
PROVIDERS: ATTEND Nurse Practitioner Family
DX: U07.1 COVID-19 (principal)

== ENCOUNTER → 2021-12-21 | Outpatient (REF) | payer MEDICARE, BC ==
[2021-12-21 10:34] LABS: HEMATOCRIT 34.9 % (36.0-47.0); HEMOGLOBIN 10.4 g/dl (12.0-15.5); MEAN CORPUSCULAR HEMOGLOBIN 29.5 pg (27.0-33.0); MEAN CORPUSCULAR HGB CONC 29.8 g/dl (32.0-36.5); MEAN CORPUSCULAR VOLUME 99.1 fl (80.0-96.0); PLATELET COUNT, AUTOMATED 181 10^3/uL (150-450); RED BLOOD COUNT 3.52 10^6/uL (4.00-5.40); WHITE BLOOD COUNT 6.1 10^3/uL (4.0-10.0)
[2021-12-21 11:13] LABS: BILIRUBIN,TOTAL 0.3 MG/DL (0.2-1.0); CALCIUM LEVEL 9.3 MG/DL (8.8-10.2); CREATININE FOR GFR 1.59 MG/DL (0.55-1.30); GLOMERULAR FILTRATION RATE 33.4 (>39); POTASSIUM SERUM 4.3 MEQ/L (3.5-5.1); TOTAL PROTEIN 6.7 GM/DL (6.4-8.2)
== END ==
LOC: SKLAB2 08:00
PROVIDERS: ATTEND Nurse Practitioner Family
DX: U07.1 COVID-19 (principal); Z79.899 Other long term (current) drug therapy

== ENCOUNTER → 2021-12-24 | Outpatient (REF) | payer MEDICARE, BC ==
[2021-12-24 09:51] LABS: HEMATOCRIT 33.2 % (36.0-47.0); HEMOGLOBIN 10.2 g/dl (12.0-15.5); MEAN CORPUSCULAR HEMOGLOBIN 30.1 pg (27.0-33.0); MEAN CORPUSCULAR HGB CONC 30.7 g/dl (32.0-36.5); MEAN CORPUSCULAR VOLUME 97.9 fl (80.0-96.0); PLATELET COUNT, AUTOMATED 157 10^3/uL (150-450); RED BLOOD COUNT 3.39 10^6/uL (4.00-5.40); WHITE BLOOD COUNT 5.1 10^3/uL (4.0-10.0)
[2021-12-24 10:41] LABS: BILIRUBIN,TOTAL 0.3 MG/DL (0.2-1.0); CALCIUM LEVEL 9.1 MG/DL (8.8-10.2); CREATININE FOR GFR 1.44 MG/DL (0.55-1.30); GLOMERULAR FILTRATION RATE 37.5 (>39); POTASSIUM SERUM 4.1 MEQ/L (3.5-5.1); TOTAL PROTEIN 6.5 GM/DL (6.4-8.2)
== END ==
LOC: SKLAB2 08:00
PROVIDERS: ATTEND Nurse Practitioner Family
DX: U07.1 COVID-19 (principal); Z79.899 Other long term (current) drug therapy

== ENCOUNTER → 2021-12-28 | Outpatient (REF) | payer MEDICARE, BC ==
[2021-12-28 10:33] LABS: HEMATOCRIT 31.2 % (36.0-47.0); HEMOGLOBIN 10.1 g/dl (12.0-15.5); MEAN CORPUSCULAR HEMOGLOBIN 30.8 pg (27.0-33.0); MEAN CORPUSCULAR HGB CONC 32.4 g/dl (32.0-36.5); MEAN CORPUSCULAR VOLUME 95.1 fl (80.0-96.0); PLATELET COUNT, AUTOMATED 139 10^3/uL (150-450); RED BLOOD COUNT 3.28 10^6/uL (4.00-5.40)
[2021-12-28 11:15] LABS: ALBUMIN 3.1 GM/DL (3.2-5.2); BILIRUBIN,TOTAL 0.3 MG/DL (0.2-1.0); CALCIUM LEVEL 9.1 MG/DL (8.8-10.2); CREATININE FOR GFR 2.41 MG/DL (0.55-1.30); GLOMERULAR FILTRATION RATE 20.7 (>39); POTASSIUM SERUM 4.6 MEQ/L (3.5-5.1); TOTAL PROTEIN 6.6 GM/DL (6.4-8.2)
== END ==
LOC: SKLAB2 08:00
PROVIDERS: ATTEND Nurse Practitioner Family
DX: U07.1 COVID-19 (principal); Z79.899 Other long term (current) drug therapy

== ENCOUNTER → 2021-12-31 | Outpatient (REF) | payer MEDICARE, BC ==
[2021-12-31 09:10] LABS: HEMATOCRIT 30.9 % (36.0-47.0); HEMOGLOBIN 9.5 g/dl (12.0-15.5); MEAN CORPUSCULAR HEMOGLOBIN 29.2 pg (27.0-33.0); MEAN CORPUSCULAR HGB CONC 30.7 g/dl (32.0-36.5); MEAN CORPUSCULAR VOLUME 95.1 fl (80.0-96.0); PLATELET COUNT, AUTOMATED 154 10^3/uL (150-450); RED BLOOD COUNT 3.25 10^6/uL (4.00-5.40); WHITE BLOOD COUNT 8.3 10^3/uL (4.0-10.0)
[2021-12-31 09:46] LABS: ALBUMIN 2.8 GM/DL (3.2-5.2); BILIRUBIN,TOTAL 0.4 MG/DL (0.2-1.0); CALCIUM LEVEL 9.1 MG/DL (8.8-10.2); CREATININE FOR GFR 2.2 MG/DL (0.55-1.30); POTASSIUM SERUM 4.1 MEQ/L (3.5-5.1); TOTAL PROTEIN 6.3 GM/DL (6.4-8.2)
== END ==
LOC: SKLAB2 08:00
PROVIDERS: ATTEND Nurse Practitioner Family
DX: U07.1 COVID-19 (principal); Z79.899 Other long term (current) drug therapy